=== PATIENT | male | born 1985 ===

== ENCOUNTER 2019-11-18 16:47 | Emergency (ER) | payer SELFPAY ==
[2019-11-18 17:02] VITALS: BMI 27.1
[2019-11-18 17:06] VITALS: BP 145/97; PULSE 70; RESP 16; TEMP 36.6; O2SAT 100
--- NOTE | 2019-11-18 17:27 | XRR_ITS ---
PROCEDURE INFORMATION: Exam: XR Abdomen, 1 View Exam date and time: 11/18/2019 5:29 PM Age: 34 years old Clinical indication: Abdominal pain; Generalized; Additional info: No bm x 3 days TECHNIQUE: Imaging protocol: XR of the abdomen. Views: Frontal supine view of the abdomen. 1 View. COMPARISON: No relevant prior studies available. FINDINGS: Gastrointestinal tract: Scattered gas and moderate stool in the colon and rectum. Multiple loops of gas-filled small bowel in the left abdomen measuring up to 2.8 cm. Intraperitoneal space: No visible pneumoperitoneum. Bones/joints: Unremarkable. XR/XR KUB portable [id number] IMPRESSION: 1. Mildly prominent loops of proximal small bowel could represent enteritis. 2. Moderate stool burden in the colon.
--- NOTE | 2019-11-18 17:32 | ED_ITS ---
HPI - General Adult General: Chief complaint: Abdominal Pain Stated complaint: abd pain Time Seen by Provider: 11/18/19 17:26 History of Present Illness: HPI narrative: Patient complains about abdominal pain x1 week. Has a history of hep C. Patient says right lower middle quadrant hurts. Denies having a BM times last 3 days. Only taken fluid and not eating anything. Not have an appetite. Denies fever. MD complaint: abd pain Onset (ago): day(s) Location: abdomen Radiation: non-radiation Severity: moderate Severity scale (1-10): 5 Quality: aching Pain Consistency: constant Relieving factors: none Exacerbating factors: eating Associated symptoms: Reports no associated symptoms; Deny chest pain, dyspnea, headache(s), nausea, rash or vomiting Review of Systems Const: Denies: fever, chills or body aches Eyes: Denies: change in vision or blurry vision ENMT: Denies: throat pain or nasal congestion Card: Denies: chest pain or shortness of breath on exertion Resp: Denies: shortness of breath, productive cough or non-productive cough GI: Reports: abdominal pain and change in bowel habits; Denies: nausea or vomiting : Denies: difficulty urinating Musc: Denies: extremity pain Skin/Breast: Denies: rash Neuro: Denies: headache Psych: Denies: anxiety or depression Donnie/Lymph: Denies: easy bruising PFSH ED PFSH: Statuses (acute, chronic, etc) shown below reflect problem list status as previously entered and may not be historically accurate Social History Smoking and tobacco status: current every day smoker Physical Exam Const: COMMON NORMALS: no apparent distress, average body habitus and oriented x3 HENMT: COMMON NORMALS: normocephalic HEAD & SCALP: normal to inspection and normocephalic FACE & SINUS: normal facial exam Eye: COMMON NORMALS: conjunctivae normal GENERAL EYE: normal appearance of both eyes CONJUNCTIVA: Yes conjunctivae normal Neck/C-Spine: COMMON NORMALS: no JVD Chest: COMMONS NORMALS: inspection of chest normal Resp: COMMON NORMALS: normal respiratory effort and clear to auscultation bilaterally AUSCULTATION: clear to auscultation bilaterally Cardio: COMMON NORMALS: no JVD, regular rate and regular rhythm RATE: regular rate RHYTHM: regular rhythm GI: COMMON NORMALS: normal to inspection, nondistended, normoactive bowel sounds AUSCULTATION: Yes normoactive bowel sounds PALPATION: Yes tender Details: RLQ and RUQ PERCUSSION: normal to percussion Extremity: COMMON NORMALS: normal to inspection and full ROM Neuro: COMMON NORMALS: oriented x3 Course Vital Signs: Vital signs: Vital Signs Temperature 97.9 F 11/18/19 17:06 Pulse Rate 70 11/18/19 17:06 Respiratory Rate 16 11/18/19 17:06 Blood Pressure 145/97 11/18/19 17:06 Pulse Oximetry 100 11/18/19 17:06 MDM - General Adult Imaging Data^: KUB: My impression: Increased stool and gas throughout abdomen Coding Level of Care Code ED 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
[2019-11-18 18:06] LABS: Basophils % 0.1 %; Eosinophils % 0.2 %; Hematocrit 48.3 % (42.0-52.0); Hemoglobin 16.3 g/dL (11.7-16.6); Lymphocytes # 1.3 10^3/uL (0.8-4.8); Lymphocytes % 12.2 %; Mean Corpuscular HGB Conc 33.7 g/dL (30.0-36.0); Mean Corpuscular Volume 88.8 fL (80-94); Mean Platelet Volume 11.2 fL (7.4-10.4); Monocytes % 9.4 %; Neutrophils # 8.3 10^3/uL (1.8-7.7); Neutrophils % 77.7 %; Nucleated Red Blood Cells % 0 %; Platelet Count 142 10^3/cmm (130-400); Red Blood Count 5.44 10^6/uL (4.1-5.3); Red Cell Distribution Width 13.5 % (12.1-15.1); White Blood Count 10.7 10^3/uL (4.0-10.0)
[2019-11-18 18:18] LABS: Alanine Aminotransferase 123 U/L (0-41); Albumin Level 4.7 g/dL (3.5-5.2); Alkaline Phosphatase 118 IU/L (40-130); Anion Gap 17.7 (5-19); Aspartate Amino Transferase 87 U/L (0-40); Blood Urea Nitrogen 21 mg/dL (6-20); Calcium 10.5 mg/Dl (8.6-10.0); Carbon Dioxide 26 mmol/L (22-29); Chloride 97 mmol/L (98-107); Globulin 2.7 g/dL (1.3-4.6); Glomerular Filtration Rate 128.3 mL/min (90-130); Glucose 97 mg/dL (74-109); Lipase 23 U/L (13-60); Potassium 4.7 mmol/L (3.5-5.1); Sodium 136 mmol/L (136-145); Total Bilirubin 1.4 mg/dL (0.15-1.2); Total Protein 7.4 g/dL (6.6-8.7)
[2019-11-18] MEDS: bisacodyl 5 mg Tablet 10 MG PO (18:18)
[2019-11-18 19:17] VITALS: BP 134/67; PULSE 68; RESP 16; O2SAT 100
[2019-11-18 19:37] VITALS: BP 133/72; PULSE 82; RESP 18; O2SAT 98
[2019-11-18 19:52] LABS: Add Urine Microscopic? YES; Bilirubin Urine 1+ (NEGATIVE); Blood Urine Neg (Negative); Glucose Urine UA Norm (Normal); Ketones Urine 1+ (Negative); Leukocyte Esterase Urine Negative (Negative); Nitrate Urine Negative (Negative); Protein Urine Trace (Negative); Urine Appearance Clear (CLEAR); Urine Color Yellow (Yellow); Urobilinogen Urine 4+ mg/dL (Negative); pH Urine 6 (5-7)
[2019-11-18 19:53] LABS: WBC Urine 0-4 /hpf (0-5)
[2019-11-18 19:54] LABS: Add Urine Culture? No; Bacteria Urine TRACE; Calcium Oxalate Crystals Urine 0-4 /hpf; Mucus Urine TRACE; Squamous Epithelial Cell Urine RARE (0-5)
== END 2019-11-18 19:39 ==
PROVIDERS: Emergency Provider Nurse Practitioner Family
DX: R10.9 Unspecified abdominal pain (principal); F17.210 Nicotine dependence, cigarettes, uncomplicated
CPT/HCPCS: 74018; 80053; 81003; 83690; 85025; 99282

== ENCOUNTER 2019-11-23 17:27 | Emergency (ER) | payer SELFPAY ==
[2019-11-23 17:32] VITALS: BP 145/96; PULSE 82; RESP 17; TEMP 36.8; O2SAT 100; BMI 27.1
--- NOTE | 2019-11-23 21:14 | ED_ITS ---
Entered by Fabiola Hensley, acting as scribe for Ashley Olmedo Angelita Nov 23, 2019 17:27 HPI - Abdominal Pain General: Chief Complaint: Abdominal Pain Stated Complaint: ABD PAIN Time Seen by Provider: 11/23/19 21:09 History of Present Illness: HPI narrative: 34 y/o male presents to the ED with abd pain, from the detention. Pt states he has Hep C and liver Cirrhosis. Pt reports RLQ pain for about 2 weeks. Pt was seen here recently for similar pain and was dx with constipation. MD elicited complaint: abdominal pain Pertinent past history: constipation Pain Consistency: constant Location: RLQ Severity: moderate Quality: sharp Relieving factors: nothing Associated Symptoms: Reports other (see HPI); Denies chills, dysuria, fever(s), hematuria and syncope Review of Systems Const: Denies: fever, chills, body aches, fatigue, malaise or diaphoresis Eyes: Denies: change in vision or blurry vision ENMT: Denies: throat pain, painful swallowing, hoarseness, ear pain, ear discharge, Change in hearing or nasal discharge Card: Denies: chest pain, palpitations, irregular heart rhythm, syncope, pre- syncope, shortness of breath on exertion or shortness of breath when lying down Resp: Denies: shortness of breath, productive cough, non-productive cough, wheezing, coughing up blood or chest congestion GI: Reports: other (see HPI) : Denies: flank pain, difficulty urinating, painful urination, urinary frequency, urinary urgency, decreased urine ouput, urinary incontinence or blood in urine Musc: Denies: neck pain, back pain, extremity pain, extremity swelling, joint pain, joint swelling, joint warmth or joint stiffness Skin/Breast: Denies: rash, skin tenderness or yellow skin Neuro: Denies: headache, numbness in extremities, weakness in extremities, changes in sensation, lack of coordination, difficulty walking, dizziness, vertigo or confusion Endo: Denies: excessive thirst, tired all the time, cold intolerance, excessive sweating, flushing or hot flashes Donnie/Lymph: Denies: easy bruising, easy bleeding, petechiae or enlarged lymph nodes All/Imm: Denies: hives, throat swelling, tongue swelling, facial swelling or acute wheezing PFSH ED PFSH: Statuses (acute, chronic, etc) shown below reflect problem list status as previously entered and may not be historically accurate Social History Smoking and tobacco status: current every day smoker Physical Exam Const: COMMON NORMALS: oriented x3 GENERAL APPEARANCE: well kempt HENMT: COMMON NORMALS: normocephalic, head/scalp atraumatic, hearing grossly normal bilaterally, external ears normal, EAC's normal, external nose normal and moist oral mucous membranes HEAD & SCALP: normal to inspection, normocephalic and atraumatic FACE & SINUS: normal facial exam and face symmetric NOSE: external nose normal and nares normal EXTERNAL EAR: Yes external ears normal EXTERNAL AUDITORY CANAL: EAC's normal MOUTH: oral and palatal mucosa normal and tongue normal Eye: COMMON NORMALS: PERRL, EOMs intact bilaterally, conjunctivae normal and no scleral icterus GENERAL EYE: normal appearance of both eyes and normal light reflex CONJUNCTIVA: Yes conjunctivae normal SCLERA: sclerae normal CORNEA: Yes corneas normal PUPIL: Yes PERRL DIRECT OPHTHALMOSCOPY: Yes normal light reflex Neck/C-Spine: COMMON NORMALS: full ROM, no lymphadenopathy, supple, no meningeal signs and no JVD GENERAL: Yes normal visual inspection and Yes trachea midline CERVICAL SPINE: Yes cervical ROM normal Chest: COMMONS NORMALS: inspection of chest normal and palpation of chest normal Resp: COMMON NORMALS: normal respiratory effort, no retractions, no use of accessory muscles and clear to auscultation bilaterally EFFORT & INSPECTION: Yes able to speak in complete sentences AUSCULTATION: clear to auscultation bilaterally Cardio: COMMON NORMALS: no JVD, regular rate, regular rhythm, S1 normal heart sound, S2 normal heart sound, no gallops, no clicks, no murmurs and no rub JUGULAR VENOUS DISTENTION: no JVD RATE: regular rate RHYTHM: regular rhythm HEART SOUNDS: S1 normal and S2 normal : COMMON NORMALS: Yes no CVA tenderness BLADDER/KIDNEY EXAM: Yes no CVA tenderness Back/Pelvis: COMMON NORMALS: no CVA tenderness, thoracic and lumbar spine normal to inspection, no thoracic nor lumbar tenderness and thoraco-lumbar ROM normal Extremity: COMMON NORMALS: normal to inspection, full ROM, normal capillary refill, no joint enlargement, no clubbing, cyanosis or edema and no calf tenderness Neuro: COMMON NORMALS: oriented x3, CN's II-XII intact bilaterally, moves all extremities, no focal motor deficits and no sensory deficits noted MENINGEAL SIGNS: Yes no meningeal signs Psych: COMMON NORMALS: mental status grossly normal, thought process normal, cooperative, affect normal, speech normal and activity/motor behavior normal APPEARANCE: Yes well kempt SPEECH: Yes normal speech THOUGHT PROCESS: normal thought process Skin: COMMON NORMALS: no rashes or lesions noted, skin turgor normal, no jaundice, no petechiae and no mottling GENERAL SKIN EXAM: no rashes or lesions noted and turgor normal Course Vital Signs: Vital signs: Vital Signs Temperature 98.2 F 11/23/19 17:32 Pulse Rate 74 11/23/19 23:00 Respiratory Rate 16 11/23/19 23:00 Blood Pressure 145/96 11/23/19 17:32 Pulse Oximetry 97 11/23/19 23:00 MDM - Abdominal Pain MDM Narrative: Medical decision making narrative: The patient is relieved to hear his CT is normal. He is ready to go home. He has no testicular pain or swelling. There is no sign of appendicitis. The patient says his pain is related to his liver. His liver enzymes are less than normal. He agrees to return if his symptoms worsen as I have advised him appendicitis is still a possibility but at this time he wants to be discharged. Lab Data: Labs: Lab Results 11/23/19 11/23/19 11/23/19 Range/Units 22:10 22:35 22:35 WBC 9.0 (4.0-10.0) 10^3/ uL RBC 4.90 (4.1-5.3) 10^6/u L Hgb 15.0 (11.7-16.6) g/dL Hct 42.6 (42.0-52.0) % MCV 86.9 (80-94) fL MCH 30.6 (28.0-34.0) pg MCHC 35.2 (30.0-36.0) g/dL RDW 13.2 (12.1-15.1) % Plt Count 148 (130-400) 10^3/c mm MPV 10.3 (7.4-10.4) fL Neut % (Auto) 70.6 % Lymph % (Auto) 18.3 % Cavalier % (Auto) 10.1 % Eos % (Auto) 0.4 % Baso % (Auto) 0.2 % Neut # (Auto) 6.4 (1.8-7.7) 10^3/u L Lymph # (Auto) 1.7 (0.8-4.8) 10^3/u L Cavalier # (Auto) 0.9 (0.2-0.9) 10^3/u L Eos # (Auto) 0.0 (0.0-0.8) 10^3/u L Baso # (Auto) 0.0 (0.0-0.1) 10^3/u L Nucleated RBC % (a uto) 0 % Nucleated RBCs # 0.0 /100WBC Sodium 137 (136-145) mmol/L Potassium 4.5 (3.5-5.1) mmol/L Chloride 100 (98-107) mmol/L Carbon Dioxide 25 (22-29) mmol/L Anion Gap 16.5 (5-19) BUN 11 (6-20) mg/dL Creatinine 0.6 L (0.7-1.2) mg/dL GFR Calculation 153.3 H (90-130) mL/min Glucose 97 (74-109) mg/dL Calcium 10.1 H (8.6-10.0) mg/Dl Total Bilirubin 0.9 (0.15-1.2) mg/dL AST 75 H (0-40) U/L ALT 113 H (0-41) U/L Alkaline Phosphata se 109 (40-130) IU/L Ammonia (16-60) umol/L Total Protein 6.3 L (6.6-8.7) g/dL Albumin 4.9 (3.5-5.2) g/dL Globulin 1.4 (1.3-4.6) g/dL Lipase 62 H (13-60) U/L Urine Color Yellow (Yellow) Urine Appearance Clear (CLEAR) Urine pH 7 (5-7) Ur Specific Gravit y 1.005 (1.005-1.030) Urine Protein Neg (Negative) Urine Glucose (UA) Norm (Normal) Urine Ketones Negative (Negative) Urine Occult Blood Neg (Negative) Urine Nitrate Negative (Negative) Urine Bilirubin Neg (NEGATIVE) Urine Urobilinogen Norm (Negative) mg/dL Ur Leukocyte Cherrie ase Negative (Negative) Urine RBC None (0-2) /hpf Urine WBC None (0-5) /hpf Ur Squamous Epith Cells None (0-5) Urine Bacteria Trace (NONE) Acetaminophen < 5.0 L (10-30) ug/mL 11/23/19 Range/Units 22:35 WBC (4.0-10.0) 10^3/ uL RBC (4.1-5.3) 10^6/u L Hgb (11.7-16.6) g/dL Hct (42.0-52.0) % MCV (80-94) fL MCH (28.0-34.0) pg MCHC (30.0-36.0) g/dL RDW (12.1-15.1) % Plt Count (130-400) 10^3/c mm MPV (7.4-10.4) fL Neut % (Auto) % Lymph % (Auto) % Cavalier % (Auto) % Eos % (Auto) % Baso % (Auto) % Neut # (Auto) (1.8-7.7) 10^3/u L Lymph # (Auto) (0.8-4.8) 10^3/u L Cavalier # (Auto) (0.2-0.9) 10^3/u L Eos # (Auto) (0.0-0.8) 10^3/u L Baso # (Auto) (0.0-0.1) 10^3/u L Nucleated RBC % (a uto) % Nucleated RBCs # /100WBC Sodium (136-145) mmol/L Potassium (3.5-5.1) mmol/L Chloride (98-107) mmol/L Carbon Dioxide (22-29) mmol/L Anion Gap (5-19) BUN (6-20) mg/dL Creatinine (0.7-1.2) mg/dL GFR Calculation (90-130) mL/min Glucose (74-109) mg/dL Calcium (8.6-10.0) mg/Dl Total Bilirubin (0.15-1.2) mg/dL AST (0-40) U/L ALT (0-41) U/L Alkaline Phosphata se (40-130) IU/L Ammonia 35 (16-60) umol/L Total Protein (6.6-8.7) g/dL Albumin (3.5-5.2) g/dL Globulin (1.3-4.6) g/dL Lipase (13-60) U/L Urine Color (Yellow) Urine Appearance (CLEAR) Urine pH (5-7) Ur Specific Gravit y (1.005-1.030) Urine Protein (Negative) Urine Glucose (UA) (Normal) Urine Ketones (Negative) Urine Occult Blood (Negative) Urine Nitrate (Negative) Urine Bilirubin (NEGATIVE) Urine Urobilinogen (Negative) mg/dL Ur Leukocyte Cherrie ase (Negative) Urine RBC (0-2) /hpf Urine WBC (0-5) /hpf Ur Squamous Epith Cells (0-5) Urine Bacteria (NONE) Acetaminophen (10-30) ug/mL Imaging Data ^: CT Abd/Pel: Radiologist's impression: [address] [address] [address] Scan Report Signed Patient: Brandon Henry #: [id number] : 1985Acct#:[id number] Age/Sex: 34 / MADM Date: 11/23/19 Loc: ERRoom/Bed: Attending Dr: Ordering Provider/Ordering MD: Ashley Olmedo DO Date of Service: 11/23/19 Procedure(s): CT abdomen pelvis w con* [id number] Accession Number(s): [id number] Report Number: [id number] PROCEDURE INFORMATION: Exam: CT Abdomen And Pelvis With Contrast Exam date and time: 11/23/2019 9:21 PM Age: 34 years old Clinical indication: Abdominal pain TECHNIQUE: Imaging protocol: Computed tomography of the abdomen and pelvis with intravenous contrast. Axial, coronal and sagittal reformatted images were created and reviewed. Total DLP: 742.82 mGy-cm Radiation optimization: All CT scans at this facility use at least one of these dose optimization techniques: automated exposure control; mA and/or kV adjustment per patient size (includes targeted exams where dose is matched to clinical indication); or iterative reconstruction. Contrast material: OMNI 300; Contrast volume: 95 ml; Contrast route: IV; COMPARISON: CR (ABDOMEN, ) 11/18/2019 5:38 PM FINDINGS: Pleural space: Focal area of pleural/parenchymal scarring in the right middle lobe. Liver: Mild hepatomegaly. Somewhat nodular hepatic contour, suggesting cirrhosis. Gallbladder and bile ducts: No radiodense gallstones. No biliary ductal dilatation. Pancreas: Unremarkable. Spleen: Moderate splenomegaly. Adrenals: Unremarkable. Kidneys and ureters: No mass. No radiodense calculi. No hydronephrosis. Stomach and bowel: Moderate amount of retained stool in the colon. No obstruction. No bowel wall thickening. No pneumatosis. Appendix: Appendix not identified with certainty but no right lower quadrant inflammatory change to suggest acute appendicitis. Intraperitoneal space: No free fluid. No organized fluid collection. No free air. Vasculature: Unremarkable. No aneurysm. Lymph nodes: No pathologically enlarged lymph nodes. Bladder: Unremarkable. Reproductive: Unremarkable. Bones/joints: No acute osseous abnormality. Mild degenerative changes. Soft tissues: Unremarkable. Other findings: Elevated left hemidiaphragm. CT/CT abdomen pelvis w con* [id number] IMPRESSION: 1. Mild hepatomegaly. Somewhat nodular hepatic contour, suggesting cirrhosis. 2. Moderate splenomegaly. 3. Moderate amount of retained stool in the colon. 4. Additional findings, as above. Radiation Dose CTDIVOL = (mGy): DLP = 742.82 (mGy-cm) Discharge Plan Discharge Patient Disposition: Home, Self-Care Clinical Impression: Abdominal pain Qualifiers: Abdominal location: generalized Qualified Code(s): R10.84 - Generalized abdominal pain Condition: Stable Prescriptions: No Action bisacodyl 5 mg tablet 5 mg PO BID PRN (Reason: constipation) Qty: 14 RF: 0 Miralax 17 gram powder in packet 17 gm PO DAILY 10 Days Qty: 10 RF: 0 Discharge Orders: Discharge Order (Routine); Ordered 11/23/19 Ordered By: Ashley Olmedo Referrals: Kate Diego DO [Physician] - 4-7 days Discharge Diet: Advance as tolerated Discharge Activity: Increase activity as tolerated Patient Instructions: Appendicitis (GEN), Abdominal Pain (ED) Activity Restrictions/Additional Instructions: Please return to the ER immediately for any of the signs or symptoms listed on your discharge instruction sheets, worsening/changing of your symptoms, you are not getting better as quickly as expected, or for ANY other cause or concerns. Coding Level of Care Code ED Assistant Professor Of Marine Biology for g Fwd The documentation recorded by the Ayden seymour Ashley, accurately reflects the service I personally performed and the decisions made by Shara hernandez Eli N Nov 23, 2019 17:27
--- NOTE | 2019-11-23 21:17 | CTR_ITS ---
PROCEDURE INFORMATION: Exam: CT Abdomen And Pelvis With Contrast Exam date and time: 11/23/2019 9:21 PM Age: 34 years old Clinical indication: Abdominal pain TECHNIQUE: Imaging protocol: Computed tomography of the abdomen and pelvis with intravenous contrast. Axial, coronal and sagittal reformatted images were created and reviewed. Total DLP: 742.82 mGy-cm Radiation optimization: All CT scans at this facility use at least one of these dose optimization techniques: automated exposure control; mA and/or kV adjustment per patient size (includes targeted exams where dose is matched to clinical indication); or iterative reconstruction. Contrast material: OMNI 300; Contrast volume: 95 ml; Contrast route: IV; COMPARISON: CR (ABDOMEN, ) 11/18/2019 5:38 PM FINDINGS: Pleural space: Focal area of pleural/parenchymal scarring in the right middle lobe. Liver: Mild hepatomegaly. Somewhat nodular hepatic contour, suggesting cirrhosis. Gallbladder and bile ducts: No radiodense gallstones. No biliary ductal dilatation. Pancreas: Unremarkable. Spleen: Moderate splenomegaly. Adrenals: Unremarkable. Kidneys and ureters: No mass. No radiodense calculi. No hydronephrosis. Stomach and bowel: Moderate amount of retained stool in the colon. No obstruction. No bowel wall thickening. No pneumatosis. Appendix: Appendix not identified with certainty but no right lower quadrant inflammatory change to suggest acute appendicitis. Intraperitoneal space: No free fluid. No organized fluid collection. No free air. Vasculature: Unremarkable. No aneurysm. Lymph nodes: No pathologically enlarged lymph nodes. Bladder: Unremarkable. Reproductive: Unremarkable. Bones/joints: No acute osseous abnormality. Mild degenerative changes. Soft tissues: Unremarkable. Other findings: Elevated left hemidiaphragm. CT/CT abdomen pelvis w con* [id number] IMPRESSION: 1. Mild hepatomegaly. Somewhat nodular hepatic contour, suggesting cirrhosis. 2. Moderate splenomegaly. 3. Moderate amount of retained stool in the colon. 4. Additional findings, as above. Radiation Dose CTDIVOL = (mGy): DLP = 742.82 (mGy-cm)
[2019-11-23 22:39] LABS: Basophils % 0.2 %; Eosinophils % 0.4 %; Hematocrit 42.6 % (42.0-52.0); Lymphocytes # 1.7 10^3/uL (0.8-4.8); Lymphocytes % 18.3 %; Mean Corpuscular HGB Conc 35.2 g/dL (30.0-36.0); Mean Corpuscular Hemoglobin 30.6 pg (28.0-34.0); Mean Corpuscular Volume 86.9 fL (80-94); Mean Platelet Volume 10.3 fL (7.4-10.4); Monocytes # 0.9 10^3/uL (0.2-0.9); Monocytes % 10.1 %; Neutrophils # 6.4 10^3/uL (1.8-7.7); Neutrophils % 70.6 %; Nucleated Red Blood Cells % 0 %; Platelet Count 148 10^3/cmm (130-400); Red Cell Distribution Width 13.2 % (12.1-15.1)
[2019-11-23] MEDS: sodium chloride 0.9% 1,000 ML 100 ML IV (22:46)
[2019-11-23] MEDS: ondansetron 2 mg/ML SDV 2 mL 4 MG IVP (22:47)
[2019-11-23 22:49] VITALS: RESP 16
[2019-11-23] MEDS: morphine 4 mg/mL SDV 1 mL IVP (22:49)
[2019-11-23 22:59] LABS: Ammonia 35 umol/L (16-60)
[2019-11-23 23:00] VITALS: PULSE 74; RESP 16; O2SAT 97
[2019-11-23 23:00] LABS: Alanine Aminotransferase 113 U/L (0-41); Albumin Level 4.9 g/dL (3.5-5.2); Alkaline Phosphatase 109 IU/L (40-130); Anion Gap 16.5 (5-19); Aspartate Amino Transferase 75 U/L (0-40); Blood Urea Nitrogen 11 mg/dL (6-20); Calcium 10.1 mg/Dl (8.6-10.0); Carbon Dioxide 25 mmol/L (22-29); Chloride 100 mmol/L (98-107); Globulin 1.4 g/dL (1.3-4.6); Glomerular Filtration Rate 153.3 mL/min (90-130); Glucose 97 mg/dL (74-109); Lipase 62 U/L (13-60); Potassium 4.5 mmol/L (3.5-5.1); Sodium 137 mmol/L (136-145); Total Bilirubin 0.9 mg/dL (0.15-1.2); Total Protein 6.3 g/dL (6.6-8.7)
[2019-11-23] MEDS: iohexol 300 mg/mL 100 mL Btl 95 ML IV (23:00)
[2019-11-23 23:03] LABS: Acetaminophen < 5.0 ug/mL (10-30)
--- NOTE | 2019-11-23 23:13 | PC.NURSE ---
Patient reports abdominal pain for two weeks. Patient states he has hep C
[2019-11-23 23:35] LABS: Add Urine Culture? No; Bacteria Urine TRACE; Bilirubin Urine Neg (NEGATIVE); Blood Urine Neg (Negative); Glucose Urine UA Norm (Normal); Ketones Urine Negative (Negative); Leukocyte Esterase Urine Negative (Negative); Nitrate Urine Negative (Negative); Protein Urine Neg (Negative); Specific Gravity, Urine 1.005 (1.005-1.030); Urine Appearance Clear (CLEAR); Urine Color Yellow (Yellow); Urobilinogen Urine Norm (Negative); pH Urine 7 (5-7)
[2019-11-23 23:54] LABS: Amphetamines Screen Urine Negative (Negative); Barbiturates Screen Urine Negative (Negative); Benzodiazepines Screen Urine Negative (Negative); Cocaine Screen Urine Negative (Negative); Opiate Screen Urine Negative (Negative); PCP Screen Urine Negative (Negative); THC Screen Urine Positive (Negative)
[2019-11-24 00:07] VITALS: BP 134/71; PULSE 75; RESP 16; TEMP 36.8; O2SAT 98
== END 2019-11-24 00:08 | disposition home or self-care (01) ==
PROVIDERS: Emergency Provider Emergency Medicine
DX: R10.84 Generalized abdominal pain (principal); F17.210 Nicotine dependence, cigarettes, uncomplicated
CPT/HCPCS: 36415; 74177; 80053; 80307; 81001; 82140; 83690; 85025; 96360; 96374; 99283; J2270; J2405; J7030; Q9967

== ENCOUNTER 2025-06-27 09:16 | Emergency (ER) | payer SELFPAY ==
--- OUTSIDE RECORDS SUMMARY | 2023-11-28 08:15 | XMS_ITS | Continuity of Care Document ---
Author Organization [facility] Address [address] [id number] [address] Phone Care Team Providers Care Debit Agent Name Role Phone James Cross DDS Unavailable Unavailable Allergies, Adverse Reactions, Alerts Substance Reaction Status Criticality No Known allergies Procedures Procedure Date Intraoral Periapical First Film Limited Oral Evaluation Problem Focused Extraction, Erupted Tooth Or Exposed Rubi t (Elevati Advance Directives Directive Yes / No Effective Date File Name No Information Encounters Encounter Description Practice Location Reason(s) For Visit Diagnoses Date Provider Providers Copied on Encounter [facility], [id number], [id number], tel:[phone] [facility] Encounter for dental exam and cleaning w/o abnormal findings [facility]. [address] [place], [address], [place]. tel:[phone] Referring Provider: James Cross, [address] [place], [address]. tel:[phone] Family History Family Member Type Diagnosis Age At Onset No Information Payers Payer name Insurance type Covered alliance party ID Authoriza tion(s) No Information Social History Type Description Quantity Date Captured Comments Alcohol Use Details Unknown Caffeine Use Details Unknown Tobacco Use Status No Information Smoking Status No Information Sex Male Gender Identity Male Chief Complaint And Reason For Visit No Information Reason For Referral Reason For Referral No Information History Of Present Illness Encounter Date Complaint History Of Prese nt Illness No Information Functional Status Date Functional Assessmen t No Information Instructions Date Instruction Additional Infor mation No Information Assessments Type Assessment Date No Information Patient Care Teams Name Effective Dates (start - stop) Status Members No Information
[2025-06-27 09:19] VITALS: BP 155/95; PULSE 69; RESP 18; TEMP 36.4; O2SAT 100; BMI 30.8
--- NOTE | 2025-06-27 09:19 | ECG_ITS ---
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 Measurements Intervals [place] Rate: 75 P: 26 IN: 133 QRS: 45 QRSD: 94 T: 47 QT: 350 QTc: 391 Interpretive Statements SINUS RHYTHM No previous ECG available for comparison Electronically Signed On 06-27-2025 18:11:06 CDT by Nicholas Arechiga M.D. [email or web address]
--- NOTE | 2025-06-27 09:19 | XR_ITS ---
WS: [id number] Exam: XR chest 1V portable [id number] Date/Time of Exam: 06/27/2025 9:26 AM Reason For Exam: chest pain No priors. Lungs are fully expanded and clear. Normal cardiomediastinal silhouette and regional bony elements. XR/XR chest 1V portable [id number] IMPRESSION: 1. Negative chest.
--- OUTSIDE RECORDS SUMMARY | 2025-06-27 09:20 | XMS_ITS | Clinical Summary ---
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 30 Capsule None 8 Active albuterol HFA 90 mcg inhaler Take 2 Puffs by inhalation every 6 hours as needed for Wheezing or Shortness of Breath. 8.5 Gram None 8 Active ibuprofen (MOTRIN) 200 mg tablet Take 800 mg by mouth every 12 hours as needed for Pain, Mild. Active Active Problems Problem Noted Date Diagnosed Date History of hepatitis C 10/27/2019 Sepsis, unspecified 10/11/2010 Pyelonephritis 10/11/2010 Renal abscess, left 10/11/2010 Overview (10/11/2010): subcapsular Nausea & vomiting 10/11/2010 Bronchitis 10/11/2010 Personal history of MRSA (il thicillin resistant Staphylococcus aureus) 10/11/2010 Cellulitis and abscess of upper arm and forearm 01/15/2009 Thrombocytopenia 01/15/2009 Family History Medical History Relation Name Comments Healthy Brother 1 Healthy Brother 2 Healthy Daughter Kidney Disease Father Liver Disease Father Hypertension Mother Relation Name Status Comments Brother 1 Alive Brother 2 Alive Daughter Alive Father Mother Alive Social History Tobacco Use Types Packs/Day Years Used Date Smoking Tobacco: Every Day Cigarettes 1 10 Smokeless Tobacco: Never Alcohol Use Standard Drinks/Week Comments Yes 0 (1 standard drink = 0.6 oz pur e alcohol) occasionally Sex and Gender Information Value Date Recorded Sex Assigned at Not on file 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[employer] Gender Identity Not on file Sexual Orientation Not on file Last Filed Vital Signs Vital Sign Reading Time Taken Comments Blood Pressure 148/78 10/27/2019 6:31 AM [employer] Pulse 78 09/14/2019 9:17 PM [employer] Temperature 36.3 C (97.4 F) 10/27/2019 6:31 AM [employer] Respiratory Rate 20 10/27/2019 6:31 AM [employer] Oxygen Saturation 99% 10/27/2019 6:31 AM [employer] Inhaled Oxygen Concentration - - Weight 89.3 kg (196 lb 12.8 oz) 10/27/2019 6:31 AM [employer] Height 177.8 cm (5' 10 ) 10/27/2019 6:31 AM [employer] Body Mass Index 28.24 10/27/2019 6:31 AM [employer] Plan of Treatment Health Maintenance Due Date Last Done Comments DTAP/TDAP/TD VACCINES (1 - Tdap) 2003 HEPATITIS B VACCINES (1 of 3 - 19+ 3-dose series) 10/02 HPV VACCINES (1 - 3-dose SCDM series) 2011 INFLUENZA VACCINE (#1) 2025 Insurance [employer] [place] [id number] Advance Directives For more information, please contact: [phone] * Full Code (Latest Code Status on File) Date Activated Date Inactivated Comments 10/11/2010 4:32 AM 10/20/2010 9:19 PM * Full Code Date Activated Date Inactivated Comments 01/15/2009 2:06 AM 01/17/2009 9:54 PM
--- OUTSIDE RECORDS SUMMARY | 2025-06-27 09:21 | XMS_ITS | Encounter Summary ---
Author Organization [email or web address] Address [address] [place] [address] Care Team Providers Care Ecommerce Marketing Specialist Name Role Phone Unavailable Primary Care Provider Unavailabl e Encounter Details Date Type Department Care Team (Late st Contact Info) Description 06/20/2025 External Device Data [facility] Provider, Abstract NO ADDRESS ON FILE Social History Tobacco Use Types Packs/Day Years Used Date Smoking Tobacco: Every Day Cigarettes Smokeless Tobacco: Never Alcohol Use Standard Drinks/Week Comments Yes 0 (1 standard drink = 0.6 oz pur e alcohol) Feeling Safe Answer Date Recorded Are you in a relationship wi th someone who hurts you emotionally and/or physically? 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
--- OUTSIDE RECORDS SUMMARY | 2025-06-27 09:21 | XMS_ITS | Clinical Summary ---
Author Organization [employer] Address [address] [facility] Attn: Epic Prelude ADT [place] [address] Care Team Providers Care Credit Charge Authorizer Name Role Phone Unavailable Primary Care Provider Unavailabl e Allergies No known active allergies Medications albuterol sulfate 90 mcg/Actuation inhaler Take 2 Puffs by inhalation every 6 hours as needed for Wheezing or Shortness of Breath. 8.5 Gram None 8 Active ibuprofen (MOTRIN) 200 mg tablet Take 800 mg by mouth every 12 hours as needed for Pain, Mild. 9 Active Active Problems Problem Noted Date Diagnosed Date Closed nondisplaced fracture of triquetral bone of right wrist 10/11/2024 Closed nondisplaced fracture of head of right ra dius 10/11/2024 History of hepatitis C 10/27/2019 Pyelonephritis 10/11/2010 Renal abscess, left 10/11/2010 Overview (02/28/2021): subcapsular Personal history of MRSA (nv thicillin resistant Staphylococcus aureus) 10/11/2010 Sepsis, unspecified 10/11/2010 Nausea \T\ vomiting 10/11/2010 Bronchitis 10/11/2010 Cellulitis and abscess of upper arm and forearm 01/15/2009 Thrombocytopenia 01/15/2009 Encounters Date Type Department Care Team Description 06/20/2025 External Device Data [facility]STRACTION Provider, Abstract 06/07/2025 External Device Data [facility]CTION Provider, Abstract 06/06/2025 External Device Data [facility] Provider, Abstract 06/06/2025 External Device Data [facility] Provider, Abstract 05/09/2025 External Device Data [facility] Provider, Abstract 05/09/2025 External Device Data [facility] Provider, Abstract 05/09/2025 External Device Data [facility]CTION Provider, Abstract 04/19/2025 3:22 PM CDT - 04/19/2025 11:59 PM CDT Hospital Encounter [facility] [address] [facility] [address] [place] [address] Artur Valadez MD Parker, Bryce, Occupational Therapist Discharge Disposition: Home or Self Care 04/19/2025 External Device Data [facility] ABSTRACTION Provider, Abstract 04/17/2025 3:25 PM CDT - 04/17/2025 11:59 PM CDT Hospital Encounter [facility] Therapy [facility] [address] [facility] [address] [place] [address] Artur Valadez MD Parker, Bryce, Occupational Therapist Discharge Disposition: Home or Self Care 04/14/2025 3:27 PM CDT - 04/14/2025 11:59 PM CDT Hospital Encounter [facility] [address] [facility] [address] [place] [address] Artur Valadez MD Parker, Bryce, Occupational Therapist Discharge Disposition: Home or Self Care 04/11/2025 3:27 PM CDT - 04/11/2025 11:59 PM CDT Hospital Encounter [facility] [address] [facility] [address] [place] [address] Artur Valadez MD Parker, Bryce, Occupational Therapist Discharge Disposition: Home or Self Care 04/11/2025 External Device Data [facility] ABSTRACTION Provider, Abstract 04/11/2025 External Device Data [facility] ABSTRACTION Provider, Abstract 04/11/2025 External Device Data [facility] ABSTRACTION Provider, Abstract 04/08/2025 11:58 AM CDT - 04/08/2025 4:04 PM CDT Emergency [facility] Emergency Medicine [address] [facility] [address] [place] [address] Xavier Wallace DO Chest pain, unspecified type (Primary Dx); Elevated troponin Discharge Disposition: Home or Self Care 04/08/2025 Travel 04/07/2025 3:27 PM CDT - 04/07/2025 11:59 PM CDT Hospital Encounter [facility] Occupational Therapy Services [place] [address] [facility] [address] [place] [address] Artur Valadez MD Parker, Bryce, Occupational Therapist Discharge Disposition: Home or Self Care 04/04/2025 3:26 PM CDT - 04/04/2025 11:59 PM CDT Hospital Encounter [facility] Therapy [facility] [address] [facility] [address] [place] [address] Artur Valadez MD Parker, Bryce, Occupational Therapist Discharge Disposition: Home or Self Care 04/04/2025 External Device Data [facility] ABSTRACTION Provider, Abstract 03/28/2025 External Device Data [facility] ABSTRACTION Provider, Abstract from Last 3 Months Family History Medical History Relation Name Comments Healthy Brother 1 Healthy Brother 2 Healthy Daughter Kidney Disease Father Liver Disease Father Hypertension Mother Relation Name Status Comments Brother 1 Alive Brother 2 Alive Daughter Alive Father Mother Alive Social History Tobacco Use Types Packs/Day Years Used Date Smoking Tobacco: Every Day Cigarettes Smokeless Tobacco: Never Tobacco Cessation:Ready to Q uit: Not Asked; Counseling Given: Not Answered Alcohol Use Standard Drinks/Week Comments Yes 0 (1 standard drink = 0.6 oz pur e alcohol) Feeling Safe Answer Date Recorded Are you in a relationship wi th someone who hurts you emotionally and/or physically? 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 Gender Identity Not on file Sexual Orientation Not on file Last Filed Vital Signs Vital Sign Reading Time Taken Comments Blood Pressure 143/97 04/08/2025 2:00 PM CDT Pulse 74 04/08/2025 2:00 PM CDT Temperature 36.6 C (97.8 F) 04/08/2025 12:00 PM CDT Respiratory Rate 19 04/08/2025 1:00 PM CDT Oxygen Saturation 99% 04/08/2025 2:00 PM CDT Inhaled Oxygen Concentration - - Weight 106.1 kg (234 lb) 04/08/2025 12:00 PM CDT Height 177.8 cm (5' 10 ) 04/08/2025 12:00 PM CDT Body Mass Index 33.58 04/08/2025 12:00 PM CDT Plan of Treatment Health Maintenance Due Date Last Done Comments Pre-Diabetes and Diabetes Screening 1984 DTAP/TDAP/TD VACCINES (1 - Tdap) 2003 HEPATITIS B VACCINES (1 of 3 - 19+ 3-dose series) 10/02 HPV VACCINES (1 - 3-dose SCDM series) 2011 INFLUENZA VACCINE (#1) 2025 Abdominal Aortic Aneurysm (AAA) Screening Completed 01/15/2009 Procedures Procedure Name Priority Date/Time Associated Diagnosis Comments TROPONIN 2 HR, 5TH GEN Timed Study 04/08/2025 2:45 PM CDT TROPONIN BASELINE, 5TH GEN Stat 04/08/2025 1:03 PM CDT XR CHEST PA AND LATERAL 2 VW Stat 04/08/2025 12:47 PM CDT DIFFERENTIAL, MANUAL Stat 04/08/2025 12:22 PM CDT MAGNESIUM LEVEL Stat 04/08/2025 12:22 PM CDT CBC WITH DIFFERENTIAL Stat 04/08/2025 12:22 PM CDT COMPREHENSIVE METABOLIC PANEL Stat 04/08/2025 12:22 PM CDT US ABDOMEN COMPLETE IP Routine 01/15/2009 8 :06 AM CDT Cellulitis and abscess Cutaneous abscess from Last 3 Months or Most Recently Relevant to Health Maintenance Results * (ABNORMAL) TROPONIN 2 HR, 5TH GEN (04/08/2025 2:45 PM CDT) TROPONIN T, 2 HR 5TH GEN 18(H) <=15 ng/L 04/08/2025 3:11 PM CDT [facility] DELTA 2HR TROPONIN T 6 See Interp. 04/08/2025 3:11 PM CDT [facility] Blood Venipuncture / Unknown 04/08/2025 2:45 PM CDT 04/08/2025 2:49 PM CDT [facility] - 04/08/2025 3:11 PM CDT Troponin elevated. Delta indeterminate. Delay in collection of timed specimen beyond recommended collection interval. Results must be interpreted in clinical context. Provade CHEMISTRY ORDERABLES Final Resu lt Performing Organization Address [facility]/ZIP Co de Phone Number [facility] CLIA # [id number] [address] [place] [phone] * TROPONIN BASELINE, 5TH GEN (04/08/2025 1:03 PM CDT) TROPONIN T, BASELINE 5TH GEN 12 <=15 ng/L 04/08/2025 1:25 PM CDT [facility] Blood Venipuncture / Unknown 04/08/2025 1:03 PM CDT 04/08/2025 1:06 PM CDT [facility] - 04/08/2025 1:25 PM CDT Troponin Detectable but normal range. Provade CHEMISTRY ORDERABLES Final Resu Performing Organization Address [facility] Co de Phone Number [facility] CLIA # [id number] [address] [place] [phone] * XR CHEST PA AND LATERAL 2 VW (04/08/2025 12:47 PM CDT) Anatomical Region Laterality Modality Chest Computed Radiogr aphy 04/08/2025 12:4 7 PM CDT Impressions 04/08/2025 1:02 PM CDT IMPRESSION: Please see below. Exam: XR CHEST PA AND LATERAL 2 VW Date/Time of Exam: 04/08/2025 12:47 PM Reason For Exam: Chest Pain. Diagnosis: See Reason for Exam. Findings: No pleural effusion or pneumothorax. No consolidating airspace disease. Cardiac silhouette within normal limits. Imaged skeleton without gross acute pathology. Narrative Procedure Note Mali Gould MD - 04/08/2025 IMPRESSION: Please see below. Exam: XR CHEST PA AND LATERAL 2 VW Date/Time of Exam: 04/08/2025 12:47 PM Reason For Exam: Chest Pain. Diagnosis: See Reason for Exam. Findings: No pleural effusion or pneumothorax. No consolidating airspace disease. Cardiac silhouette within normal limits. Imaged skeleton without gross acute pathology. Xavier Wallace DO DIAGNOSTIC IMAGING ORDERABLES F inal Result * MANUAL DIFFERENTIAL (04/08/2025 12:22 PM CDT) Pathologist [facility] PLATELET EST. Decreased 04/08/2025 12:47 PM CDT [facility] RBC MORPHOLOGY Normal 04/08/2025 12:47 PM [facility] Blood Venipuncture / Unknown 04/08/2025 12:22 PM CDT 04/08/2025 12:27 PM CDT Xavier Wallace DO HEMATOLOGY ORDERABLES COM Final Result [facility] CLIA # [id number] [address] [place] [id number] * (ABNORMAL) CBC WITH DIFFERENTIAL (04/08/2025 12:22 PM CDT) [facility] WBC 9.5(H) 4.2 - 9.1 K/uL 04/08/2025 12:47 PM T [facility] RBC 5.36 4.63 - 6.08 M/uL 04/08/2025 12:47 PM [facility] HEMOGLOBIN 17.1 13.7 - 17.5 g/dL 04/08/2025 12:47 PM [facility] HEMATOCRIT 48.4 40.1 - 51.0 % 04/08/2025 12:47 PM [facility] MCV 90.3 79.0 - 92.2 fL 04/08/2025 12:47 PM [facility] MCH 31.9 25.7 - 32.2 pg 04/08/2025 12:47 PM [facility] MCHC 35.3 32.3 - 36.5 g/dL 04/08/2025 12:47 PM [facility] RDW 12.3 11.0 - 14.5 % 04/08/2025 12:47 PM [facility] RDW-STDEV 40.0 36.9 - 56.9 fL 04/08/2025 12:47 PM [facility] PLATELETS 99(L) 130 - 400 K/uL 04/08/2025 12:47 PM [facility] MPV 11.9 10.0 - 14.8 fL 04/08/2025 12:47 PM [facility] NEUTROPHILS 77(H) 34 - 68 % 04/08/2025 12:47 PM [facility] LYMPHOCYTES 16(L) 22 - 53 % 04/08/2025 12:47 PM [facility] MONOCYTES 6 5 - 12 % 04/08/2025 12:47 PM [facility] EOSINOPHILS 1 1 - 7 % 04/08/2025 12:47 PM [facility] BASOPHILS 0 0 - 1 % 04/08/2025 12:47 PM [facility] IMMATURE GRANULOCYTES 0 % 04/08/2025 12:47 PM [facility] NEUTROPHIL ABSOLUTE 7.32(H) 1.78 - 5.38 K/uL 04/08/2025 12:47 PM [facility] LYMPHOCYTE ABSOLUTE 1.55 1.20 - 3.40 K/uL 04/08/2025 12:47 PM [facility] MONOCYTE ABSOLUTE 0.57 0.30 - 0.82 K/uL 04/08/2025 12:47 PM [facility] EOSINOPHIL ABSOLUTE 0.06 0.04 - 0.54 K/uL 04/08/2025 12:47 PM [facility] BASOPHILS ABSOLUTE 0.01 0.01 - 0.08 K/uL 04/08/2025 12:47 PM [facility] IMMATURE GRANULOCYTES ABSOLUTE 0.02 K/uL 04/08/2025 12:47 PM CDT [facility] Blood Venipuncture / Unknown 04/08/2025 12:22 PM CDT 04/08/2025 12:27 PM CDT Xavier Wallace DO HEMATOLOGY ORDERABLES Final Res ult Performing Organization Address [facility]/ZIP Co de Phone Number [facility] CLIA # [id number] [address] [place] [address] * MAGNESIUM LEVEL (04/08/2025 12:22 PM CDT) MAGNESIUM 2.1 1.6 - 2.6 mg/dL 04/08/2025 12:51 PM CDT [facility] Blood Venipuncture / Unknown 04/08/2025 12:22 PM CDT 04/08/2025 12:35 PM CDT Xavier Wallace DO CHEMISTRY ORDERABLES Final Resu lt Performing Organization Address [facility]/ZIP Co de Phone Number [facility] CLIA # [id number] [address] [place] [phone] * (ABNORMAL) COMPREHENSIVE METABOLIC PANEL (04/08/2025 12:22 PM CDT) SODIUM 139 136 - 145 mmol/L 04/08/2025 12:51 PM CDT [facility] POTASSIUM 4.3 3.5 - 5.1 mmol/L 04/08/2025 12:51 PM CDT [facility] CHLORIDE 102 98 - 107 mmol/L 04/08/2025 12:51 PM CDT [facility] CO2 21(L) 22 - 29 mmol/L 04/08/2025 12:51 PM CDT [facility] CALCIUM 9.8 8.6 - 10.0 mg/dL 04/08/2025 12:51 PM CDT [facility] BUN 16 6 - 20 mg/dL 04/08/2025 12:51 PM CDT [facility] CREATININE 0.82 0.67 - 1.17 mg/dL 04/08/2025 12:51 PM [facility] GLUCOSE 93 74 - 99 mg/dL 04/08/2025 12:51 PM [facility] TOTAL PROTEIN 6.8 6.6 - 8.7 g/dL 04/08/2025 12:51 PM [facility] ALBUMIN 5.4(H) 3.5 - 5.2 g/dL 04/08/2025 12:51 PM [facility] BILIRUBIN TOTAL 0.9 0.0 - 1.2 mg/dL 04/08/2025 12:51 PM [facility] ALKALINE PHOSPHATASE 116 40 - 129 U/L 04/08/2025 12:51 PM [facility] AST 31 0 - 50 U/L 04/08/2025 12:51 PM [facility] ALT 31 0 - 50 U/L 04/08/2025 12:51 PM [facility] GFR >60 >=60 mL/min/1.7 3 sq meter 04/08/2025 12:51 PM [facility] Comment:eGFR calculated with 2020 CKD-EPI equation. Vegetarian diet, extremely high or low muscle mass, and may affect results. Cystatin C with Glomerular Filtration Rate is a suitable alternative for these patients. ANION GAP 16 5 - 20 mmol/L 04/08/2025 12:51 PM T [facility] Blood Venipuncture / Unknown 04/08/2025 12:22 PM CDT 04/08/2025 12:35 PM CDT us Xavier Wallace DO CHEMISTRY ORDERABLES Final Resu lt [facility] CLIA # [id number] [address] [place] [address] [id number] * US ABDOMEN COMPLETE (01/15/2009 8:06 AM CDT) Anatomical Region Laterality Modality Abdomen Other Impressions 01/16/2009 7:17 AM CDT Impression: 1. Mild splenomegaly. 2. Small amount of sludge in an otherwise normal-appearing gallbladder. jaw - uploaded from [employer] - Narrative 01/16/2009 7:17 AM CDT Exam: US ABDOMEN COMPLETE Date/Time of Exam: Jan 15, 2009 8:06:00 AM History: Other - Please see comments. Findings: The pancreas is poorly visualized. The visualized liver parenchyma is homogeneous. There are no dilated intrahepatic biliary radicles. The common bile duct measures 4.1 mm in diameter. There appears to be a small amount of sludge within the gallbladder. There are no shadowing gallstones. The gallbladder wall thickness is normal. The right kidney measures 11.4 cm in length and is unremarkable. The spleen is mildly generous measuring as much as 14.8 cm in length with an estimated volume of 694 mL. The left kidney measures 11.4 cm in length and is unremarkable. Procedure Note Jaya Moreno MD - 12/30/2022 Exam: US ABDOMEN COMPLETE Date/Time of Exam: Jan 15, 2009 8:06:00 AM History: Other - Please see comments. Findings: The pancreas is poorly visualized. The visualized liverparenchyma is homogeneous. There are no dilated intrahepatic biliary radicles. The common bile duct measures4.1 mm in diameter. There appears to be a small amount of sludge within the gallbladder. There are noshadowing gallstones. The gallbladder wall thickness is normal. The right kidney measures 11.4 cm inlength and is unremarkable. The spleen is mildly generous measuring as much as 14.8 cm in length withan estimated volume of 694 mL. The left kidney measures 11.4 cm in length and is unremarkable. IMPRESSION Impression: 1. Mild splenomegaly. 2. Small amount of sludge in an otherwise normal-appearing gallbladder. jaw - uploaded from [employer] - Javier Child MD ORDERABLES Final Result from Last 3 Months or Most Recently Relevant to Health Maintenance Insurance [employer]
--- NOTE | 2025-06-27 09:29 | W.ED.CHESTPA ---
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 Yesterday at times low radiation to his pain to his right shoulder. Deep breathing makes it better. So he is not having any pain at this time. No fever sweats chills no productive cough. Patient is a smoker nondrinker. Associated symptoms: Reports dyspnea; Deny abdominal pain or fever(s) Related Data Home Medications ?Medication ?Instructions ?Recorded ?Confirmed aspirin 325 mg tablet (Ashley 650 mg PO Q4H PRN Fever Or Pain 06/27/25 06/27/25 Aspirin) Previous Rx's ?Medication ?Instructions ?Recorded pantoprazole 40 mg tablet,delayed 40 mg PO DAILY 4 weeks #30 tabs 06/27/25 release Allergies Allergy/AdvReac Type Severity Reaction Status Date / Time No Known Allergies Allergy Verified 06/27/25 09:19 Review of Systems Const: Denies: fever(s) or chills Card: Reports: chest pain Resp: Reports: dyspnea GI: Denies: abdominal pain : Denies: dysuria, urinary frequency or urinary urgency Musc: Denies: neck pain or back pain Skin/Breast: Denies: rash PFSH ED PFSH: Family History Mother Heart disease Social History Smoking and tobacco/nicotine status: current every day tobacco/nicotine user Marital status: Single service: No Physical Exam Const: GENERAL APPEARANCE: cooperative ORIENTATION/CONSCIOUSNESS: Yes awake, Yes oriented to person, Yes oriented to place and Yes oriented to time HENMT: COMMON NORMALS: normocephalic, atraumatic and hearing grossly normal bilaterally HEAD & SCALP: normocephalic and atraumatic Resp: COMMON NORMALS: normal respiratory effort, No retractions, No use of accessory muscles and clear to auscultation bilaterally AUSCULTATION: clear to auscultation bilaterally Cardio: COMMON NORMALS: regular rate, regular rhythm and No murmurs present (Cardio) RATE: regular rate RHYTHM: regular rhythm GI: COMMON NORMALS: Soft to palpation and No hepatosplenomegaly present AUSCULTATION: Yes normoactive bowel sounds PALPATION: Yes Soft to palpation, No Tenderness to palpation present (GI), No Guarding due to palpation present (GI) and Yes No hepatosplenomegaly present Extremity: COMMON NORMALS: normal to inspection, capillary refill normal, no clubbing, cyanosis or edema, no calf tenderness and no pedal edema Neuro: SENSORIUM/ORIENTATION: Yes oriented to person, Yes oriented to place and Yes oriented to time Skin: COMMON NORMALS: no rashes or lesions noted GENERAL SKIN EXAM: no rashes or lesions noted Course Vital Signs: Vital signs: Vital Signs Temperature 97.6 F 06/27/25 09:19 Pulse Rate 57 L 06/27/25 12:30 Respiratory Rate 27 H 06/27/25 12:30 Blood Pressure 124/83 06/27/25 12:30 Pulse Oximetry 100 06/27/25 12:30 MDM - Chest Pain Medical Decision Making Cardiac enzymes are negative D-dimer is negative chest x-ray is normal. Patient has a heart score 1. Reviewed EKGs no acute findings discharge patient home no evidence of acute coronary syndrome there is no widening of the mediastinum characteristic pain is not suggestive of a dissecting aneurysm D-dimer low very low likelihood of pulmonary embolism based on his clinical presentation there is no pneumothorax or pneumonia on his chest x-ray. Start him on pantoprazole him follow-up with primary care doctor return for further problems patient is had symptoms for several weeks undetectable cardiac platelets are slightly low Medical Records I reviewed the patient's medical records. Lab Data I reviewed the patient's lab results. 06/27/25 09:35 06/27/25 09:35 Radiology Impressions Chest X-Ray 06/27/25 09:19 IMPRESSION: 1. Negative chest. Laboratory Results WBC 6.37 10^3/uL (3.29-11.43) 06/27/25 09:35 RBC 5.13 10^6/uL (3.85-5.65) 06/27/25 09:35 Hgb 16.00 g/dL (11.27-16.99) 06/27/25 09:35 Hct 47.2 % (37-53) 06/27/25 09:35 MCV 92.0 fl (82-101) 06/27/25 09:35 MCH 31.2 pg (27-33) 06/27/25 09:35 MCHC 33.9 g/dL (30-55) 06/27/25 09:35 RDW 12.4 % (12.1-15.1) 06/27/25 09:35 Plt Count 99 10^3/cmm (157-399) L 06/27/25 09:35 MPV 12.1 fL (7.4-10.4) H 06/27/25 09:35 Neut % (Auto) 70.5 % 06/27/25 09:35 Lymph % (Auto) 22.4 % 06/27/25 09:35 Ray % (Auto) 6.0 % 06/27/25 09:35 Eos % (Auto) 0.6 % 06/27/25 09:35 Baso % (Auto) 0.3 % 06/27/25 09:35 Neut # (Auto) 4.49 10^3/uL (1.8-7.7) 06/27/25 09:35 Lymph # (Auto) 1.4 10^3/uL (0.8-4.8) 06/27/25 09:35 Ray # (Auto) 0.4 10^3/uL (0.2-0.9) 06/27/25 09:35 Eos # (Auto) 0.0 10^3/uL (0.0-0.8) 06/27/25 09:35 Baso # (Auto) 0.0 10^3/uL (0.0-0.1) 06/27/25 09:35 Nucleated RBC % (auto) 0 % 06/27/25 09:35 Nucleated RBCs # 0.0 /100WBC 06/27/25 09:35 D-Dimer <= 0.27 ug/mLFEU (0-0.59) 06/27/25 09:35 Sodium 140 mmol/L (136-145) 06/27/25 09:35 Potassium 4.1 mmol/L (3.5-5.1) 06/27/25 09:35 Chloride 104 mmol/L (98-107) 06/27/25 09:35 Carbon Dioxide 26 mmol/L (22-29) 06/27/25 09:35 Anion Gap 14.1 (5-19) 06/27/25 09:35 BUN 13 mg/dL (6-20) 06/27/25 09:35 Creatinine 0.8 mg/dL (0.7-1.2) 06/27/25 09:35 GFR Calculation 107.1 mL/min (90-130) 06/27/25 09:35 Glucose 90 mg/dL (65-115) 06/27/25 09:35 Calculated Osmolality 290 mOsm/kg (285-295) 06/27/25 09:35 Calcium 9.4 mg/dL (8.5-10.5) 06/27/25 09:35 Total Bilirubin 0.5 mg/dL (0.15-1.2) 06/27/25 09:35 AST 23 U/L (0-40) 06/27/25 09:35 ALT 22 U/L (0-41) 06/27/25 09:35 Alkaline Phosphatase 102 U/L (40-130) 06/27/25 09:35 Troponin T Baseline 10 ng/L (0-15) 06/27/25 09:35 Troponin T 120 Minute 12.59 ng/L (0-15) 06/27/25 11:40 Delta Troponin T 2.59 ABS# (0-10) 06/27/25 11:40 Total Protein 6.3 g/dL (6.6-8.7) L 06/27/25 09:35 Albumin 5.0 g/dL (3.5-5.2) 06/27/25 09:35 Globulin 1.3 g/dL (1.3-4.6) 06/27/25 09:35 All radiology interpretation(s) finalized by discharge EKG Data EKG 1: Interpretation: EKG 06/27/2025 9:16 AM normal sinus rhythm no acute ST changes noted no previous EKG to compare rate 75 TX interval 133 QTc 378 Clincial Decision Support The following clinical decision support tools were used to aid in care of the patient HEART Score -> History: Moderately Suspicious, EKG: Normal, Age: Less than 45 yrs, Risk Factors: No Risk Factors Known, Troponin: Baseline Trop <16 ng/L. Resulting HEART Score: 1. Discharge Plan Discharge Patient Disposition: Home Clinical Impression: Atypical chest pain, Chest pain due to GERD Condition: Stable Prescriptions: New pantoprazole 40 mg tablet,delayed release (DR/EC) 40 mg PO DAILY 28 Days Qty: 30 0RF No Action aspirin [Ashley Aspirin] 325 mg Tablet 650 mg PO Q4H PRN (Reason: Fever Or Pain) Rx Instructions: while awake Discharge Orders: Discharge ED (Routine); Ordered 06/27/25 Ordered By: Alejandro Oreilly Discharge Diet: Usual diet Discharge Activity: Increase activity as tolerated Patient Instructions: Opioid Safety, Pain Management, Patient Portal & Any Instructions Activity Restrictions/Additional Instructions: [facility]. It is very important that you follow up as instructed or that you return to the Emergency Department should you have concerns or if your condition changes or worsens in any way. You were seen today with complaints of chest discomfort. Your cardiac enzymes D-dimer chest x-ray were all normal. There is no sign of acute coronary syndrome your vital signs were normal and your oxygen sat were normal there is no sign of pneumonia pneumothorax clinically no sign of pulmonary embolism. Suspect that some of your pain is referred pain from reflux. Will start you on pantoprazole follow-up with your primary care doctor. Print Language: Citizen Of [place] Coding Level of Care Code ED Portal Administrator for Александр Skinner
[2025-06-27 09:50] LABS: Hematocrit 47.2 % (37-53); Hemoglobin 16.00 g/dL (11.27-16.99); Mean Corpuscular HGB Conc 33.9 g/dL (30-55); Mean Corpuscular Hemoglobin 31.2 pg (27-33); Mean Corpuscular Volume 92.0 fl (82-101); Nucleated Red Blood Cells % 0 %; Platelet Count 99 10^3/cmm (157-399); Red Blood Count 5.13 10^6/uL (3.85-5.65); White Blood Count 6.37 10^3/uL (3.29-11.43)
[2025-06-27 10:01] LABS: Alanine Aminotransferase 22 U/L (0-41); Albumin Level 5.0 g/dL (3.5-5.2); Alkaline Phosphatase 102 U/L (40-130); Anion Gap 14.1 (5-19); Aspartate Amino Transferase 23 U/L (0-40); Blood Urea Nitrogen 13 mg/dL (6-20); Calcium 9.4 mg/dL (8.5-10.5); Carbon Dioxide 26 mmol/L (22-29); Chloride 104 mmol/L (98-107); Creatinine Clr Calc Pharmacy 143.7653; Globulin 1.3 g/dL (1.3-4.6); Glucose 90 mg/dL (65-115); Osmolality Calculated 290 mOsm/kg (285-295); Potassium 4.1 mmol/L (3.5-5.1); Sodium 140 mmol/L (136-145); Total Protein 6.3 g/dL (6.6-8.7)
[2025-06-27 10:04] LABS: Troponin(5th) Baseline 10 ng/L (0-15)
--- NOTE | 2025-06-27 11:19 | ECG_ITS ---
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 Measurements Intervals [place] Rate: 60 P: 19 NC: 125 QRS: 50 QRSD: 98 T: 47 QT: 385 QTc: 386 Interpretive Statements SINUS RHYTHM Compared to ECG 06/27/2025 09:16:21 No significant changes Electronically Signed On 06-27-2025 18:17:04 CDT by Nicholas Arechiga M.D. [email or web address]
[2025-06-27 12:01] LABS: Troponin 5 2HR 12.59 ng/L (0-15); Troponin 5 2HR Delta 2.59 ABS# (0-10)
[2025-06-27 12:22] VITALS: RESP 17; O2SAT 100
[2025-06-27] MEDS: morphine 4 mg/mL SDV 1 mL IVP (12:22)
[2025-06-27 12:23] VITALS: BP 134/90
[2025-06-27 12:30] VITALS: BP 124/83; PULSE 57; RESP 27; O2SAT 100
[2025-06-27 13:41] VITALS: BP 145/90; PULSE 65; RESP 17; O2SAT 99
== END 2025-06-27 13:41 | disposition home or self-care (01) ==
PROVIDERS: Emergency Provider Family Medicine
DX: R07.89 Other chest pain (principal); K21.9 Gastro-esophageal reflux disease without esophagitis; Z79.82 Long term (current) use of aspirin; Z72.0 Tobacco use
CPT/HCPCS: 36415; 71045; 80053; 84484; 85025; 85378; 93005; 96374; 96375; 99285; J1885; J2270; J9999

== ENCOUNTER 2025-08-19 21:04 | Emergency (ER) | payer SELFPAY ==
--- OUTSIDE RECORDS SUMMARY | 2025-08-19 21:10 | XMS_ITS | Encounter Summary ---
Author Organization [employer] Address [address] [place] [address] Care Team Providers Care Senior Controls Engineer Name Role Phone Srinivasan Childers MD Primary Care Provider [phone] Encounter Details Date Type Department Care Team (Late st Contact Info) Description 08/15/2025 External Device Data [place] ABSTRACTION Provider, Abstract NO ADDRESS ON FILE Social History Tobacco Use Types Packs/Day Years Used Date Smoking Tobacco: Every Day Cigarettes Smokeless Tobacco: Never Alcohol Use Standard Drinks/Week Comments Yes 0 (1 standard drink = 0.6 oz pur e alcohol) occasionally Feeling Safe Answer Date Recorded Are you in a relationship wi th someone who hurts you emotionally and/or physically? 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
--- OUTSIDE RECORDS SUMMARY | 2025-08-19 21:10 | XMS_ITS | Encounter Summary ---
Author Organization [employer] Address [address] [place] [address] Care Team Providers Care Casino Cage Supervisor Name Role Phone Srinivasan Childers MD Primary Care Provider [phone] Encounter Details Date Type Department Care Team [...] on file Legal Sex Male 3:11 AM DIRECTOR CARDIOLOGY Gender Identity Not on file Sexual Orientation Not on file documented as of this encounter Plan of Treatment Not on file documented as of this encounter Visit Diagnoses Not on filedocumented in this encounter Care Teams Casino Cage Supervisor Relationship Specialty Start Date End Date Srinivasan Childers MD [address] [place] [address] PCP - General Family Practice 08/09/25 documented as of this encounter
--- OUTSIDE RECORDS SUMMARY | 2025-08-19 21:10 | XMS_ITS | Clinical Summary ---
Author Organization [employer] Address [address] [facility] Attn: Epic Prelude ADT MAXIMILIANO NASH [id number] Care Team Providers Care Inventory Control Planner Name Role Phone Srinivasan Childers MD Primary Care Provider [phone] Allergies No known active allergies Medications ibuprofen (MOTRIN) 200 mg tablet Take 800 mg by mouth every 12 hours as needed for Pain, Mild. 09/14/20 19 Active albuterol sulfate HFA 90 mcg/actuation aerosol inhaler Take 2 Puffs by inhalation every 6 hours as needed for Shortness of Breath. 8.5 Gram 07/20/20 25 Active pantoprazole (Protonix) 40 mg Tablet, Delayed Release (E.C.)Indicatio ns:Gastroesopha geal reflux disease with esophagitis without hemorrhage Take 1 Tablet (40 mg) by mouth daily. 30 Tablet 08/08/20 25 025 Active azithromycin (ZITHROMAX) 500 mg tablet Take 1 Tablet (500 mg) by mouth daily for 3 days. 3 Tablet 07/20/20 25 025 cefdinir (OMNICEF) 300 mg capsule Take 1 Capsule (300 mg) by mouth every 12 hours for 4 days. 8 Capsule 07/20/20 25 025 pantoprazole (PROTONIX) 40 mg Tablet, Delayed Release (E.C.) TAKE 1 TABLET BY MOUTH ONCE DAILY FOR 4 WEEKS 06/27/20 25 025 Discontinued Active Problems Problem Noted Date Diagnosed Date Community acquired pneumonia of right upper lobe of lung 07/18/2025 Closed nondisplaced fracture of triquetral bone of right wrist 10/11/2024 Closed nondisplaced fracture of head of right ra dius 10/11/2024 History of hepatitis C 10/27/2019 Pyelonephritis 10/11/2010 Renal abscess, left 10/11/2010 Overview (02/28/2021): subcapsular Personal history of MRSA (ok thicillin resistant Staphylococcus aureus) 10/11/2010 Sepsis, unspecified 10/11/2010 Nausea \T\ vomiting 10/11/2010 Bronchitis 10/11/2010 Cellulitis and abscess of upper arm and forearm 01/15/2009 Thrombocytopenia 01/15/2009 Encounters Date Type Department Care Team Description 08/15/2025 External Device Data ST[facility] ABSTRACTION Provider, Abstract 08/15/2025 External Device Data [facility] ABSTRACTION Provider, Abstract 08/08/2025 12:00 PM CDT Office Visit [facility] [address] [phone] Shagufta Weinstein, CLIENT SERVICE PROFESSIONAL Gastroesophageal reflux disease with esophagitis without hemorrhage (Primary Dx) 08/08/2025 External Device Data STL ABSTRACTION Provider, Abstract 07/25/2025 External Device Data ST[facility] ABSTRACTION Provider, Abstract 07/25/2025 External Device Data ST[facility] ABSTRACTION Provider, Abstract 07/25/2025 External Device Data STL ABSTRACTION Provider, Abstract 07/24/2025 Telephone [facility] Utilization Management [address] [phone] Sindy Gutiérrez, RN Follow Up (Attempt to call patient for hospital follow up was unsuccessful. 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 Gender Identity Not on file Sexual Orientation Not on file Last Filed Vital Signs Vital Sign Reading Time Taken Comments Blood Pressure 130/80 08/08/2025 11:49 AM CDT Pulse 60 08/08/2025 11:49 AM CDT Temperature 35.9 C (96.7 F) 08/08/2025 11:49 AM CDT Respiratory Rate 17 08/08/2025 11:49 AM CDT Oxygen Saturation 100% 08/08/2025 11:49 AM CDT Inhaled Oxygen Concentration - - Weight 98.9 kg (218 lb) 08/08/2025 11:49 AM CDT Height 175.3 cm (5' 9 ) 08/08/2025 11:49 AM CDT Body Mass Index 32.19 08/08/2025 11:49 AM CDT Plan of Treatment Health Maintenance Due Date Last Done Comments Pre-Diabetes and Diabetes Screening 1984 DTAP/TDAP/TD VACCINES (1 - Tdap) 2003 HEPATITIS B VACCINES (1 of 3 - 19+ 3-dose series) 10/02 HPV VACCINES (1 - 3-dose SCDM series) 2011 INFLUENZA VACCINE (#1) 2025 Abdominal Aortic Aneurysm (AAA) Screening Completed 01/15/2009 Procedures Procedure Name Priority Date/Time Associated Diagnosis Comments TELEMETRY REPORT 07/21/2025 8:57 AM CDT COMPREHENSIVE METABOLIC PANEL Routine 07/20/2025 6:25 AM CDT CBC WITH DIFFERENTIAL Routine 07/20/2025 6:25 AM CDT COMPREHENSIVE METABOLIC PANEL Routine 07/19/2025 5:08 AM CDT CBC WITH DIFFERENTIAL Routine 07/19/2025 5:08 AM CDT LACTIC ACID Stat 07/18/2025 7:30 PM CDT BLOOD CULTURE Stat 07/18/2025 4:55 PM CDT BLOOD CULTURE Stat 07/18/2025 4:55 PM CDT BLOOD CULTURE Stat 07/18/2025 4:48 PM CDT BLOOD CULTURE Stat 07/18/2025 4:48 PM CDT XR CHEST PA AND LATERAL 2 VW Stat 07/18/2025 4:[address] ABDOMEN PELVIS W CONTRAST Stat 07/18/2025 3:56 PM CDT COVID-19 ANTIGEN Stat 07/18/2025 3:09 PM CDT INFLUENZA VIRUS A AND B, ANTIGEN DETECTION Stat 07/18/2025 3:09 PM CDT LACTIC ACID Stat 07/18/2025 2:51 PM CDT DIFFERENTIAL, MANUAL Stat 07/18/2025 2:51 PM CDT LIPASE Stat 07/18/2025 2:51 PM CDT COMPREHENSIVE METABOLIC PANEL Stat 07/18/2025 2:51 PM CDT CBC WITH DIFFERENTIAL Stat 07/18/2025 2:51 PM CDT US ABDOMEN COMPLETE IP Routine 01/15/2009 8 :06 AM CDT Cellulitis and abscess Cutaneous abscess from Last 3 Months or Most Recently Relevant to Health Maintenance Results * TELEMETRY REPORT (07/21/2025 8:57 AM CDT) us Provider Scanning ECG ORDERABLES Final Result * (ABNORMAL) CBC WITH DIFFERENTIAL (07/20/2025 6:25 AM CDT) Only the most recent of3 resultswithin the time period is included. WBC 6.7 4.2 - 9.1 K/uL 07/20/2025 7:03 AM [facility] RBC 4.02(L) 4.63 - 6.08 M/uL 07/20/2025 7:03 AM [facility] HEMOGLOBIN 12.7(L) 13.7 - 17.5 g/dL 07/20/2025 7:03 AM [facility] HEMATOCRIT 35.2(L) 40.1 - 51.0 % 07/20/2025 7:03 AM [facility] MCV 87.6 79.0 - 92.2 fL 07/20/2025 7:03 AM [facility] MCH 31.6 25.7 - 32.2 pg 07/20/2025 7:03 AM [facility] MCHC 36.1 32.3 - 36.5 g/dL 07/20/2025 7:03 AM [facility] RDW 12.1 11.0 - 14.5 % 07/20/2025 7:03 AM [facility] RDW-STDEV 38.9 36.9 - 56.9 fL 07/20/2025 7:03 AM [facility] PLATELETS 58(L) 130 - 400 K/uL 07/20/2025 7:03 AM [facility] MPV 12.3 10.0 - 14.8 fL 07/20/2025 7:03 AM [facility] NEUTROPHILS 84(H) 34 - 68 % 07/20/2025 7:03 AM [facility] LYMPHOCYTES 10(L) 22 - 53 % 07/20/2025 7:03 AM [facility] MONOCYTES 5 5 - 12 % 07/20/2025 7:03 AM [facility] EOSINOPHILS 0(L) 1 - 7 % 07/20/2025 7:03 AM [facility] BASOPHILS 0 0 - 1 % 07/20/2025 7:03 AM [facility] IMMATURE GRANULOCYTES 1 % 07/20/2025 7:03 AM [facility] NEUTROPHIL ABSOLUTE 5.62(H) 1.78 - 5.38 K/uL 07/20/2025 7:03 AM [facility] LYMPHOCYTE ABSOLUTE 0.68(L) 1.20 - 3.40 K/uL 07/20/2025 7:03 AM [facility] MONOCYTE ABSOLUTE 0.35 0.30 - 0.82 K/uL 07/20/2025 7:03 AM [facility] EOSINOPHIL ABSOLUTE 0.02(L) 0.04 - 0.54 K/uL 07/20/2025 7:03 AM [facility] BASOPHILS ABSOLUTE 0.01 0.01 - 0.08 K/uL 07/20/2025 7:03 AM [facility] IMMATURE GRANULOCYTES ABSOLUTE 0.05 K/uL 07/20/2025 7:03 AM [facility] Blood BLOOD SPECIMEN / Unknown Venipuncture / Unknown 07/20/2025 6:25 AM CDT 07/20/2025 6:57 AM T us Keiko Lizarraga DISPLAYER MERCHANDISE HEMATOLOGY ORDERABLES F inal Result [facility] CLIA # [id number] [address] [place] [address] * (ABNORMAL) COMPREHENSIVE METABOLIC PANEL (07/20/2025 6:25 AM CDT) Only the most recent of3 resultswithin the time period is included. SODIUM 138 136 - 145 mmol/L 07/20/2025 7:16 AM [facility] POTASSIUM 3.5 3.5 - 5.1 mmol/L 07/20/2025 7:16 AM [facility] CHLORIDE 105 98 - 107 mmol/L 07/20/2025 7:16 AM [facility] CO2 23 22 - 29 mmol/L 07/20/2025 7:16 AM [facility] CALCIUM 8.4(L) 8.6 - 10.0 mg/dL 07/20/2025 7:16 AM [facility] BUN 16 6 - 20 mg/dL 07/20/2025 7:16 AM [facility] CREATININE 0.67 0.67 - 1.17 mg/dL 07/20/2025 7:16 AM [facility] GLUCOSE 86 74 - 99 mg/dL 07/20/2025 7:16 AM [facility] TOTAL PROTEIN 5.0(L) 6.6 - 8.7 g/dL 07/20/2025 7:16 AM [facility] ALBUMIN 3.3(L) 3.5 - 5.2 g/dL 07/20/2025 7:16 AM [facility] BILIRUBIN TOTAL 0.8 0.0 - 1.2 mg/dL 07/20/2025 7:16 AM [facility] ALKALINE PHOSPHATASE 67 40 - 129 U/L 07/20/2025 7:16 AM [facility] AST 15 0 - 50 U/L 07/20/2025 7:16 AM [facility] ALT 14 0 - 50 U/L 07/20/2025 7:16 AM [facility] GFR >60 >=60 mL/min/1.7 3 sq meter 07/20/2025 7:16 AM [facility] Comment:eGFR calculated with 2020 CKD-EPI equation. Vegetarian diet, extremely high or low muscle mass, and may affect results. Cystatin C with Glomerular Filtration Rate is a suitable alternative for these patients. ANION GAP 10 5 - 20 mmol/L 07/20/2025 7:16 AM CDT [facility] Blood BLOOD SPECIMEN / Unknown Venipuncture / Unknown 07/20/2025 6:25 AM CDT 07/20/2025 6:58 AM CDT [facility] CHEMISTR[facility] ORDERABLES Fi nal Result [facility] CLIA # [id number] [address] [place] [address] * LACTIC ACID (07/18/2025 7:30 PM CDT) Only the most recent of2 resultswithin the time period is included. LACTIC ACID 1.7 <=2.0 mmol/L 07/18/2025 8:12 PM CDT [facility] Blood BLOOD SPECIMEN / Unknown Venipuncture / Unknown 07/18/2025 7:30 PM CDT 07/18/2025 7:41 PM CDT Keiko path intelligencesan juan DISPLAYER MERCHANDISE CHEMISTRY ORDERABLES Fi nal Result [facility] CLIA # [id number] [address] [place] [address] * BLOOD CULTURE (07/18/2025 4:55 PM CDT) Only the most recent of2 resultswithin the time period is included. BLOOD CULTURE No growth 07/24/2025 5:09 PM CDT [facility] Blood (Peripheral) Collection / Unknown 07/18/2025 4:55 PM CDT 07/18/2025 5:07 PM CDT Narrative [facility] - 07/24/2025 5:09 PM CDT Specimen processed with suboptimal blood volume collected. Ludwig Rasmussen MD MICROBIOLOGY - GENERAL ORDERABL ES Final Result [facility] # [id number] [id number] [place] [address] * XR CHEST PA AND LATERAL 2 VW (07/18/2025 4:01 PM CDT) Anatomical Region Laterality Modality Chest Computed Radiogr aphy 07/18/2025 4:01 PM CDT Impressions 07/18/2025 4:05 PM CDT IMPRESSION: Please see below. Exam: XR CHEST PA AND LATERAL 2 VW Date/Time of Exam: 07/18/2025 4:01 PM Reason For Exam: Cough. Diagnosis: See Reason for Exam. Comparison: April 08, 2025 FINDINGS: Cardiomediastinal silhouette normal. There is dense airspace disease in the anterior segment right upper lobe. Air bronchogram formation. This is most consistent with an acute infectious pneumonia. No effusion or pneumothorax. No acute osseous finding. IMPRESSION: Right upper lobe pneumonia. Narrative Procedure Note Zane Larios, - 07/18/2025 IMPRESSION: Please see below. Exam: XR CHEST PA AND LATERAL 2 VW Date/Time of Exam: 07/18/2025 4:01 PM Reason For Exam: Cough. Diagnosis: See Reason for Exam. Comparison: April 08, 2025 FINDINGS: Cardiomediastinal silhouette normal. There is dense airspace disease in the anterior segment right upper lobe. Air bronchogram formation. This is most consistent with an acute infectious pneumonia. No effusion or pneumothorax. No acute osseous finding. IMPRESSION: Right upper lobe pneumonia. Lio Sutherland DO DIAGNOSTIC IMAGING ORDERABLE S Final Result * CT ABDOMEN PELVIS W CONTRAST (07/18/2025 3:56 PM CDT) Anatomical Region Laterality Modality Abdomen Computed Tomogra phy 07/18/2025 3:39 PM CDT Impressions 07/18/2025 4:19 PM CDT IMPRESSION: Please see below. Exam: CT ABDOMEN PELVIS W CONTRAST Date/Time of Exam: 07/18/2025 3:56 PM Reason For Exam: Abdominal pain, acute, nonlocalized. Diagnosis: See Reason for Exam. Technique: Helical axial images were obtained following nonionic intravenous (IOPAMIDOL 61 % INTRAVENOUS SOLUTION (SINGLE USE VIAL) Given:95 mL) contrast. Comparison: None recent. FINDINGS: Lung bases are grossly clear. Heart size normal. Cirrhotic appearance of the liver without focal mass. Splenomegaly. Mild upper abdominal varices and without ascites. Kidneys, gallbladder, pancreas and adrenals appear within normal limits. No acute bowel pathology is detected. No mass or adenopathy. No free fluid or focal inflammatory process. Prostate, seminal vesicles and bladder show no acute abnormality. Prostatic calcification. No free pelvic fluid. Trace aortoiliac atherosclerosis. No acute osseous finding. IMPRESSION: No acute abdominal pelvic pathology. Findings of hepatic cirrhosis with splenomegaly. No ascites. Narrative Procedure Note Zane Larios DO - 07/18/2025 IMPRESSION: Please see below. Exam: CT ABDOMEN PELVIS W CONTRAST Date/Time of Exam: 07/18/2025 3:56 PM Reason For Exam: Abdominal pain, acute, nonlocalized. Diagnosis: See Reason for Exam. Technique: Helical axial images were obtained following nonionic intravenous (IOPAMIDOL 61 % INTRAVENOUS SOLUTION (SINGLE USE VIAL) Given:95 mL) contrast. Comparison: None recent. FINDINGS: Lung bases are grossly clear. Heart size normal. Cirrhotic appearance of the liver without focal mass. Splenomegaly. Mild upper abdominal varices and without ascites. Kidneys, gallbladder, pancreas and adrenals appear within normal limits. No acute bowel pathology is detected. No mass or adenopathy. No free fluid or focal inflammatory process. Prostate, seminal vesicles and bladder show no acute abnormality. Prostatic calcification. No free pelvic fluid. Trace aortoiliac atherosclerosis. No acute osseous finding. IMPRESSION: No acute abdominal pelvic pathology. Findings of hepatic cirrhosis with splenomegaly. No ascites. Lio Sutherland DO CT ORDERABLES Final Result * COVID-19 ANTIGEN (07/18/2025 3:09 PM CDT) [facility] COVID-19 ANTIGEN Presumptive Negative Presumptive Negative 07/18/2025 3:36 PM CDT [facility] Upper Respiratory ANTERIOR NARES SWAB / Unknown Collection / Unknown 07/18/2025 3:09 PM CDT 07/18/2025 3:14 PM CDT [facility] - 07/18/2025 3:36 PM CDT Malika SARS antigen test has been authorized by FDA under an emergency use authorization (EUA) and has been authorized only for the detection of proteins from SARS-CoV-2 and influenza, not for any other viruses or pathogens. Malika SARS Antigen LATONYA is intended for the simultaneous qualitative detection and differentiation of nucleocapsid protein antigen from SARS-CoV-2 directly from nasopharyngeal (BINGO FLOATER) and nasal (NS) swab specimens collected from individuals who are suspected of respiratory viral infection consistent with COVID-19 by their healthcare provider within the first five (5) days of symptom onset when tested at least twice over three days with at least 48 hours between tests, or from individuals without symptoms or other epidemiological reasons to suspect COVID-19 when tested at least three times over five days with at least 48 hours between tests. This test is only authorized for the duration of the declaration that circumstances exist justifying the authorization of emergency use of in vitro diagnostics for detection and/or diagnosis of the virus that causes COVID-19 under Section 564(b)(1) of the Act, 21 U.S.C. 360bbb-3(b)(1), unless the authorization is terminated or revoked sooner. Negative results should be treated as presumptive and confirmed with a molecular assay, if necessary for patient care. Serial testing should be performed in individuals with negative results at least twice over three days (with 48 hours between tests) for symptomatic individuals or from individuals without symptoms or other epidemiological reasons to suspect COVID-19 when tested at least three times over five days with at least 48 hours between tests. Lio Sutherland DO MICROBIOLOGY - GENERAL ORDER RAKESH Final Result [facility] CLIA # [id number] [address] [place] [address] * INFLUENZA VIRUS A AND B, ANTIGEN DETECTION (07/18/2025 3:09 PM CDT) [facility] INFLUENZA A AG NOT DETECTED Not Detected 07/18/2025 3:36 PM CDT [facility] INFLUENZA B AG NOT DETECTED Not Detected 07/18/2025 3:36 PM CDT [facility] Upper Respiratory ENTIRE NASOPHARYNX / Unknown Collection / Unknown 07/18/2025 3:09 PM CDT 07/18/2025 3:14 PM CDT Narrative [facility] - 07/18/2025 3:36 PM CDT Negative results do not rule out infection. If clinically indicated, consider PCR testing which is more sensitive than antigen testing. If PCR testing is desired, consult with your local laboratory as sample recollection may be required. us Lio Sutherland DO MICROBIOLOGY - GENERAL ORDER RAKESH Final Result Performing Organization Address City/[facility]/ZIP Co de Phone Number [facility] CLIA # [id number] [address] [place] [address] * MANUAL DIFFERENTIAL (07/18/2025 2:51 PM CDT) [facility] PLATELET EST. Slightly Decreased 07/18/2025 3:11 PM CDT [facility] RBC MORPHOLOGY Normal 07/18/2025 3:11 PM CDT [facility] Blood BLOOD SPECIMEN / Unknown Collection / Unknown 07/18/2025 2:51 PM CDT 07/18/2025 2:57 PM CDT us Lio Sutherland DO HEMATOLOGY ORDERABLES COM Fi nal Result Performing Organization Address City/[facility]/ZIP Co de Phone Number [facility] CLIA # [id number] [address] [place] [address] * LIPASE (07/18/2025 2:51 PM CDT) [facility] LIPASE 15 13 - 60 U/L 07/18/2025 3:19 PM CDT [facility] Blood BLOOD SPECIMEN / Unknown Collection / Unknown 07/18/2025 2:51 PM CDT 07/18/2025 2:57 PM CDT Lio Sutherland DO CHEMISTRY ORDERABLES Final R esult [facility] CLIA # [id number] [address] [place] [address] * US ABDOMEN COMPLETE (01/15/2009 8:06 AM CDT) Anatomical Region Laterality Modality Abdomen Other Impressions 01/16/2009 7:17 AM CDT Impression: 1. Mild splenomegaly. 2. Small amount of sludge in an otherwise normal-appearing gallbladder. jaw - uploaded from [employer] 01/16/2009 7:17 AM CDT Exam: US ABDOMEN [...] otherwise normal-appearing gallbladder. jaw - uploaded from [employer] - us Javier Child MD ORDERABLES Final Result from Last 3 Months or Most Recently Relevant to Health Maintenance Insurance Interview Master Advance Directives For more information, please contact: [phone] * Full Code (Latest Code Status on File) Date Activated Date Inactivated Comments 07/18/2025 7:28 PM 07/20/2025 1:02 PM Care Teams Inventory Control Planner Relationship Specialty Start Date End Date Srinivasan Childers MD [address] [facility] [address] [place] [phone] PCP - General Family Practice 08/09/25
--- OUTSIDE RECORDS SUMMARY | 2025-08-19 21:10 | XMS_ITS | Clinical Summary ---
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 Gender Identity Not on file Sexual Orientation Not on file Last Filed Vital Signs Vital Sign Reading Time Taken Comments Blood Pressure 148/78 10/27/2019 6:31 AM DENTAL PRACTICE MANAGER Pulse 78 09/14/2019 9:17 PM DENTAL PRACTICE MANAGER Temperature 36.3 C (97.4 F) 10/27/2019 6:31 AM DENTAL PRACTICE MANAGER Respiratory Rate 20 10/27/2019 6:31 AM DENTAL PRACTICE MANAGER Oxygen Saturation 99% 10/27/2019 6:31 AM DENTAL PRACTICE MANAGER Inhaled Oxygen Concentration - - Weight 89.3 kg (196 lb 12.8 oz) 10/27/2019 6:31 AM DENTAL PRACTICE MANAGER Height 177.8 cm (5' 10 ) 10/27/2019 6:31 AM DENTAL PRACTICE MANAGER Body Mass Index 28.24 10/27/2019 6:31 AM DENTAL PRACTICE MANAGER Plan of Treatment Health Maintenance Due Date Last Done Comments DTAP/TDAP/TD VACCINES (1 - Tdap) 2003 HEPATITIS B VACCINES (1 of 3 - 19+ 3-dose series) 10/02 HPV VACCINES (1 - 3-dose SCDM series) 2011 INFLUENZA VACCINE (#1) 2025 Insurance WORK[employer]IMIL[place] [id number] Advance Directives For more information, please contact: [phone] * Full Code (Latest Code Status on File) Date Activated Date Inactivated Comments 10/11/2010 4:32 AM 10/20/2010 9:19 PM * Full Code Date Activated Date Inactivated Comments 01/15/2009 2:06 AM 01/17/2009 9:54 PM
[2025-08-19 21:11] VITALS: BP 149/91; PULSE 67; RESP 16; TEMP 36.7; O2SAT 99; BMI 31.5
[2025-08-19 21:48] LABS: Hematocrit 40.8 % (37-53); Hemoglobin 14.10 g/dL (11.27-16.99); Mean Corpuscular HGB Conc 34.6 g/dL (30-55); Mean Corpuscular Hemoglobin 31.3 pg (27-33); Mean Corpuscular Volume 90.5 fl (82-101); Nucleated Red Blood Cells % 0 %; Platelet Count 84 10^3/cmm (157-399); Red Blood Count 4.51 10^6/uL (3.85-5.65); White Blood Count 4.67 10^3/uL (3.29-11.43)
[2025-08-19 21:58] VITALS: BP 128/70; PULSE 99; RESP 15; TEMP 36.8; O2SAT 98
[2025-08-19 22:12] LABS: Alanine Aminotransferase 26 U/L (0-41); Albumin Level 4.7 g/dL (3.5-5.2); Alkaline Phosphatase 126 U/L (40-130); Anion Gap 14.1 (5-19); Aspartate Amino Transferase 23 U/L (0-40); Blood Urea Nitrogen 17 mg/dL (6-20); Calcium 9.0 mg/dL (8.5-10.5); Carbon Dioxide 26 mmol/L (22-29); Chloride 104 mmol/L (98-107); Creatinine Clr Calc Pharmacy 166.1032; Globulin 1.6 g/dL (1.3-4.6); Glucose 109 mg/dL (65-115); Lipase 46 U/L (13-60); Osmolality Calculated 292 mOsm/kg (285-295); Potassium 4.1 mmol/L (3.5-5.1); Sodium 140 mmol/L (136-145); Total Protein 6.3 g/dL (6.6-8.7)
--- NOTE | 2025-08-19 22:12 | CTR_ITS ---
PROCEDURE INFORMATION: Exam: CT Abdomen And Pelvis With Contrast Exam date and time: 08/19/2025 10:59 PM Age: 39 years old Clinical indication: Abdominal pain; Localized; Upper; C/O ruq/epigastric pain with diarrhea TECHNIQUE: Imaging protocol: Computed tomography of the abdomen and pelvis with contrast. Radiation optimization: All CT scans at this facility use at least one of these dose optimization techniques: automated exposure control; mA and/or kV adjustment per patient size (includes targeted exams where dose is matched to clinical indication); or iterative reconstruction. Contrast material: OMNI 350; Contrast volume: 100 ml; Contrast route: INTRAVENOUS (IV); COMPARISON: CT abdomen pelvis w con* [id number] 11/23/2019 11:12 PM RADIATION DOSE METRICS: Total DLP (mGy-cm): 872.67 FINDINGS: Lungs: Mild bibasilar atelectasis. Stable 5 mm right lower lobe nodule. Diaphragm: Asymmetric elevation of the left hemidiaphragm. Liver: The liver is enlarged, measuring 18.3 cm craniocaudal. Morphologic changes of the liver with a nodular contour, increased from prior. Ill-defined hypodense focus in the right hepatic dome, more pronounced than prior. Gallbladder and biliary ducts: Normal. No calcified stones. No ductal dilation. Pancreas: Normal. No ductal dilation. Spleen: The spleen measures 17.2 cm craniocaudal. Adrenal glands: Normal. No mass. Kidneys and ureters: Normal. No hydronephrosis. Stomach and bowel: Unremarkable. No obstruction. No mucosal thickening. Appendix: No evidence of appendicitis. Intraperitoneal space: Unremarkable. No free air. No significant fluid collection. Vasculature: Unremarkable. No abdominal aortic aneurysm. Lymph nodes: Unremarkable. No enlarged lymph nodes. Urinary bladder: Unremarkable as visualized. Reproductive: Unremarkable as visualized. Bones/joints: Moderate multilevel lumbar spondylosis. Soft tissues: Unremarkable. CT/CT abdomen pelvis w con* [id number] IMPRESSION: 1. Cirrhotic liver morphology. Ill-defined hypodensity in the right hepatic dome is more pronounced than prior and could be related to underlying fibrosis but is not fully characterized. Consider nonemergent MRI abdomen without and with contrast for further evaluation. 2. Splenomegaly. 3. Stable 5 mm right lower lobe nodule. Stable pulmonary nodule(s) for which no further follow-up is recommended. (Reference: Cristhian) REFERENCES: Cristhian Iyer, et al. Guidelines for Management of Incidental Pulmonary Nodules Detected on CT Images: From the Fleischner Society 2017. Radiology. 2017;284(1):228-243.
--- NOTE | 2025-08-19 22:19 | ECG_ITS ---
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 Measurements Intervals Casey Rate: 61 P: 21 VT: 137 QRS: 41 QRSD: 98 T: 43 QT: 389 QTc: 393 Interpretive Statements SINUS RHYTHM Compared to ECG 06/27/2025 11:31:09 No significant changes Electronically Signed On 08-22-2025 19:47:11 CDT by Nicholas Arechiga M.D. [email or web address]
--- NOTE | 2025-08-19 22:29 | W.ED.ABDPA2 ---
HPI - Abdominal Pain General: Chief Complaint: Abdominal Pain Stated Complaint: abd pain Time Seen by Provider: 08/19/25 22:00 Source: patient Mode of arrival: ambulatory Limitations: no limitations History of Present Illness: Patient is a 39-year-old male who presents the emergency department complaining of right upper quadrant abdominal pain for the past several months but worsening over the past 2 days. States the pain has started to come and intermittent waves of sharp pain that will last approximately 5 minutes. States that occasionally it will also radiate to the epigastric region and left upper quadrant. He does not state that it is related to eating at all. Does note he is having some diarrhea, last normal bowel movement was earlier today. He is not having any nausea or vomiting. No previous abdominal surgeries. No chest pain or shortness of breath. No fevers or chills at home. States that the pain occasionally will radiate into the back. Vitals are stable at this time he is nontoxic-appearing and afebrile. Does not note taking any medications for the pain, he is requesting pain meds at this time. MD elicited complaint: abdominal pain Pain Consistency: constant Location: RUQ Severity: similar to previous episodes Quality: sharp Radiation: LUQ and epigastric Exacerbating factors: nothing Relieving factors: nothing Associated Symptoms: Reports diarrhea; Denies bloating, change in stool character, chills, constipation, dysuria, fever(s), hematochezia, nausea and vomiting Related Data Home Medications ?Medication ?Instructions ?Recorded ?Confirmed aspirin 325 mg tablet (Ashley 650 mg PO Q4H PRN Fever Or Pain 06/27/25 06/27/25 Aspirin) Previous Rx's ?Medication ?Instructions ?Recorded famotidine 40 mg tablet (Pepcid) 40 mg PO DAILY #30 tabs 08/19/25 ondansetron 4 mg disintegrating 4 mg PO TID PRN nausea and 08/19/25 tablet vomiting #30 tabs Allergies Allergy/AdvReac Type Severity Reaction Status Date / Time No Known Allergies Allergy Verified 06/27/25 09:19 Review of Systems General: Reports: 10 or more systems reviewed and unremarkable except in HPI and below Const: Denies: fever(s), chills, change in appetite, change in weight or diaphoresis ENMT: Denies: throat pain or hoarseness Card: Denies: chest pain, palpitations or lightheadedness Resp: Denies: dyspnea, productive cough or wheezing GI: Reports: abdominal pain and diarrhea; Denies: nausea, vomiting, constipation, bloating, change in stool character or hematochezia : Denies: flank pain, difficulty urinating, dysuria, urinary frequency or urinary urgency Musc: Reports: back pain; Denies: neck pain Skin/Breast: Denies: rash or new lesions Neuro: Denies: headache(s) or dizziness PFSH ED PFSH: Family History Mother Heart disease Social History Smoking and tobacco/nicotine status: current every day tobacco/nicotine user Marital status: Single service: No Physical Exam Const: COMMON NORMALS: no acute distress, average body habitus, patient oriented x3, no limitations, healthy appearing, alert and well nourished GENERAL APPEARANCE: cooperative and comfortable ORIENTATION/CONSCIOUSNESS: Yes awake Neck/C-Spine: COMMON NORMALS: full ROM, supple, no meningeal signs and no JVD Resp: COMMON NORMALS: normal respiratory effort, No retractions, No use of accessory muscles and clear to auscultation bilaterally AUSCULTATION: clear to auscultation bilaterally, no crackles, no rales, no rhonchi and no wheezes Cardio: COMMON NORMALS: no JVD, regular rate, regular rhythm, No gallops present (Cardio), No clicks present (Cardio), No murmurs present (Cardio) and No rub (Cardio) RATE: regular rate RHYTHM: regular rhythm GI: COMMON NORMALS: Normal to inspection, nondistended, normoactive bowel sounds present, Soft to palpation, No hepatosplenomegaly present and no masses AUSCULTATION: Yes normoactive bowel sounds PALPATION: Yes Soft to palpation, Yes Tenderness to palpation present (GI) (Diffuse), No Guarding due to palpation present (GI), No Rigid due to palpation and Yes No hepatosplenomegaly present RECTAL EXAM: Yes deferred : COMMON NORMALS: Yes no CVA tenderness BLADDER/KIDNEY EXAM: Yes no CVA tenderness Back/Pelvis: COMMON NORMALS: no CVA tenderness Extremity: COMMON NORMALS: normal to inspection and full ROM Neuro: COMMON NORMALS: patient oriented x3, moves all extremities, no focal motor deficits and no sensory deficits noted SENSORIUM/ORIENTATION: Yes alert MENINGEAL SIGNS: Yes no meningeal signs Psych: COMMON NORMALS: mental status grossly normal, cooperative and speech normal SPEECH: Yes normal speech Skin: COMMON NORMALS: no rashes or lesions noted GENERAL SKIN EXAM: no rashes or lesions noted Course Vital Signs: Vital signs: Vital Signs Temperature 98.2 F 08/19/25 21:58 Pulse Rate 99 08/19/25 21:58 Respiratory Rate 16 08/19/25 22:50 Blood Pressure 128/70 08/19/25 21:58 Pulse Oximetry 96 08/19/25 22:50 Oxygen Delivery Me thod Room Air 08/19/25 21:58 MDM - Abdominal Pain Medical Decision Making Patient presented for upper abdominal pain, primarily right upper quadrant for the past couple days. However he does note to me that he has been dealing with this for months, and has some epigastric pain that intermittently will be a burning sensation. Denies history of GERD. CBC, CMP, and lipase unremarkable here in the ED. Abdomen and pelvis CT showing cirrhotic liver, but no other acute emergent findings. His LFTs were normal and bilirubin was also normal. He does not have primary care so I will establish with one so that he can follow-up, overall stable for discharge, will start him on Pepcid for GERD and Zofran sent for nausea. He is given general return precautions, he notes improvement of symptoms here in the ED after morphine and Zofran. Lab Data 08/19/25 21:33 08/19/25 21:33 Labs/Radiology: Radiology Impressions Abdomen/Pelvis CT 08/19/25 22:12 IMPRESSION: 1. Cirrhotic liver morphology. Ill-defined hypodensity in the right hepatic dome is more pronounced than prior and could be related to underlying fibrosis but is not fully characterized. Consider nonemergent MRI abdomen without and with contrast for further evaluation. 2. Splenomegaly. 3. Stable 5 mm right lower lobe nodule. Stable pulmonary nodule(s) for which no further follow-up is recommended. (Reference: Cristhian) REFERENCES: Cristhian Iyer, et al. Guidelines for Management of Incidental Pulmonary Nodules Detected on CT Images: From the Fleischner Society 2017. Radiology. 2017;284(1):228-243. Laboratory Results WBC 4.67 10^3/uL (3.29-11.43) 08/19/25 21: RBC 4.51 10^6/uL (3.85-5.65) 08/19/25 21: Hgb 14.10 g/dL (11.27-16.99) 08/19/25 21: Hct 40.8 % (37-53) 08/19/25: MCV 90.5 fl (82-101) 08/19/25 21: MCH 31.3 pg (27-33) 08/19/25 21: MCHC 34.6 g/dL (30-55) 08/19/25: RDW 12.6 % (12.1-15.1) 08/19/25: Plt Count 84 10^3/cmm (157-399) L 08/19/25: MPV 12.1 fL (7.4-10.4) H 08/19/25 21: Neut % (Auto) 65.6 % 08/19/25 21: Lymph % (Auto) 24.2 % 08/19/25 21: [place] % (Auto) 6.6 % 08/19/25: Eos % (Auto) 3.0 % 08/19/25: Baso % (Auto) 0.2 % 08/19/25: Neut # (Auto) 3.06 10^3/uL (1.8-7.7) 08/19/25: Lymph # (Auto) 1.1 10^3/uL (0.8-4.8) 08/19/25 21: [place] # (Auto) 0.3 10^3/uL (0.2-0.9) 08/19/25: Eos # (Auto) 0.1 10^3/uL (0.0-0.8) 08/19/25: Baso # (Auto) 0.0 10^3/uL (0.0-0.1) 08/19/25: Nucleated RBC % (auto) 0 % 08/19/25: Nucleated RBCs # 0.0 /100WBC 08/19/25 21: Sodium 140 mmol/L (136-145) 08/19/25 21:33 Potassium 4.1 mmol/L (3.5-5.1) 08/19/25 21:33 Chloride 104 mmol/L (98-107) 08/19/25 21:33 Carbon Dioxide 26 mmol/L (22-29) 08/19/25 21:33 Anion Gap 14.1 (5-19) 08/19/25 21:33 BUN 17 mg/dL (6-20) 08/19/25 21:33 Creatinine 0.7 mg/dL (0.7-1.2) 08/19/25 21:33 GFR Calculation 124.9 mL/min (90-130) 08/19/25 21:33 Glucose 109 mg/dL (65-115) 08/19/25 21:33 Calculated Osmolality 292 mOsm/kg (285-295) 08/19/25 21:33 Calcium 9.0 mg/dL (8.5-10.5) 08/19/25 21:33 Total Bilirubin 0.3 mg/dL (0.15-1.2) 08/19/25 21:33 AST 23 U/L (0-40) 08/19/25 21:33 ALT 26 U/L (0-41) 08/19/25 21:33 Alkaline Phosphatase 126 U/L (40-130) 08/19/25 21:33 Total Protein 6.3 g/dL (6.6-8.7) L 08/19/25 21:33 Albumin 4.7 g/dL (3.5-5.2) 08/19/25 21:33 Globulin 1.6 g/dL (1.3-4.6) 08/19/25 21:33 Lipase 46 U/L (13-60) 08/19/25 21:33 All radiology interpretation(s) finalized by discharge Discharge Plan Discharge Patient Disposition: Home Clinical Impression: GERD (gastroesophageal reflux disease) Qualifiers: Esophagitis presence: esophagitis presence not specified Qualified Code(s): K21.9 - Gastro-esophageal reflux disease without esophagitis Abdominal pain Qualifiers: Abdominal location: generalized Qualified Code(s): R10.84 - Generalized abdominal pain Condition: Stable Prescriptions: New famotidine [Pepcid] 40 mg tablet 40 mg PO DAILY Qty: 30 0RF ondansetron 4 mg tablet,disintegrating 4 mg PO TID PRN (Reason: nausea and vomiting) Qty: 30 0RF No Action aspirin [Ashley Aspirin] 325 mg Tablet 650 mg PO Q4H PRN (Reason: Fever Or Pain) Rx Instructions: while awake Discharge Orders: Discharge ED (Routine); Ordered 08/19/25 Ordered By: Roc Baum Patient Instructions: Abdominal Pain (ED), Patient Portal & Any Instructions Activity Restrictions/Additional Instructions: GERD Discharge Instructions Diagnosis and Follow-Up - You were diagnosed with gastroesophageal reflux disease (GERD) and generalized abdominal pain. Your lab tests and CT scan were reassuring. - You should follow up with your primary care provider for reevaluation and ongoing management. Medications - Famotidine 40 mg daily: Take as prescribed. Famotidine helps reduce stomach acid and control GERD symptoms. Take it at the same time each day, preferably at bedtime unless otherwise directed. - Ondansetron (as needed): Use for nausea only when necessary. Follow the dosing instructions provided. Lifestyle and Dietary Recommendations - Weight loss: If you are overweight, losing weight can help improve GERD symptoms. - Avoid meals within 2?3 hours of bedtime: This reduces nighttime reflux. - Elevate the head of your bed: If you have symptoms at night, raising the head of your bed may help. - Avoid tobacco and alcohol: Both can worsen GERD symptoms. - Identify and avoid trigger foods: Common triggers include spicy foods, chocolate, caffeine, and fatty foods. Pay attention to foods that worsen your symptoms and try to avoid them. - Eat smaller, more frequent meals: Large meals can increase reflux. When to Seek Medical Attention - If you develop new or worsening symptoms such as severe abdominal pain, vomiting blood, black stools, difficulty swallowing, or unintentional weight loss, seek medical care promptly. Additional Information - Famotidine is generally well tolerated, but may cause headache, dizziness, or constipation. - GERD is a chronic condition, but symptoms can often be managed with medication and lifestyle changes. Next Steps - Schedule a follow-up appointment with your primary care provider as directed. - Bring this information and a list of your medications to your appointment. If you have any questions or concerns before your follow-up, contact your healthcare provider. Print Language: Serbian Coding Level of Care Code ED [employer] Install[employer] Technician for Александр Skinner
[2025-08-19 22:50] VITALS: RESP 16; O2SAT 96
[2025-08-19] MEDS: morphine 4 mg/mL SDV 1 mL IVP (22:50)
[2025-08-19] MEDS: ondansetron 2 mg/ML SDV 2 mL 4 MG IVP (22:51)
[2025-08-19] MEDS: iohexol 350 mg/mL 500 mL Btl (per mL) IV (23:02)
[2025-08-20 00:22] VITALS: BP 122/77; PULSE 82; RESP 16; O2SAT 96
--- NOTE | 2025-08-21 08:09 | DCPLANNER ---
messaged [facility] to establish PCP
== END 2025-08-20 00:10 | disposition home or self-care (01) ==
PROVIDERS: Emergency Medicine; Emergency Provider Physician Assistant
DX: K21.9 Gastro-esophageal reflux disease without esophagitis (principal); R10.84 Generalized abdominal pain; Z79.82 Long term (current) use of aspirin; Z72.0 Tobacco use
CPT/HCPCS: 36415; 74177; 80053; 83690; 85025; 93005; 96374; 96375; 99285; J2270; J2405; J7040